=== PATIENT | female | born 1970 | race Caucasian/White ===

== ENCOUNTER 2017-05-19 18:11 | Emergency (ER) | payer OTHER ==
[~2017-05-19] VITALS: Ht 162.6 cm; Wt 74.8 kg
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
[2017-05-19] MEDS ORDERED: ACETAMINOPHEN ES 500 MG TABLET ONE (18:46)
[2017-05-19] MEDS ORDERED: ACETAMINOPHEN 325 MG TABLET PO ONE (19:00)
--- NOTE | 2017-05-19 19:06 | NUR ---
REPORT GIVEN TO SARAH TANG FOR CHARLES
--- NOTE | 2017-05-19 19:15 | NUR ---
Patient in bed, alert and responsive. Nad noted. vss. Comfort meaures rendered. Proper body alignment maintained.
--- NOTE | 2017-05-19 21:08 | NUR ---
Patient discharged to home in stable condition. Written and verbal after care instructions given. Patient verbalizes understanding of instruction. Patient is ambulatory with steady gait, no further complaints.
[2017-05-19 21:09] VITALS: BP 128/74
== END 2017-05-19 21:43 | disposition home or self-care (01) ==
LOC: ER 18:12
DX: S43.102A Unspecified dislocation of left acromioclavicular joint, initial encounter (principal); R51 Headache; J45.909 Unspecified asthma, uncomplicated; F17.210 Nicotine dependence, cigarettes, uncomplicated; F11.10 Opioid abuse, uncomplicated; Z59.0 Homelessness; Z86.14 Personal history of Methicillin resistant Staphylococcus aureus infection; V29.49XA Motorcycle driver injured in collision with other motor vehicles in traffic accident, initial encounter; Y93.55 Activity, bike riding; Y92.89 Other specified places as the place of occurrence of the external cause; Y99.8 Other external cause status
CPT/HCPCS: 29105; 70450; 72125; 73030; 73590; 99284; A4606; Z7610

== ENCOUNTER 2021-02-20 01:44 | Inpatient (IN) | payer OTHER ==
[~2021-02-20] VITALS: Ht 162.6 cm; Wt 86.2 kg
--- NOTE | 2021-02-20 02:00 | NUR ---
PT ARRIVED TO ER WITH RT KNEE SWELLING AND PAIN FOR 5DAYS. PT ALERT AND ORIENTED X4 WITH NON LABORED BREATHING.
--- NOTE | 2021-02-20 02:04 | NUR ---
COVID SWAB TAKEN AND SENT TO LAB.
--- NOTE | 2021-02-20 02:05 | NUR ---
BLOOD WORK AND CULTURES TAKEN AND SENT TO LAB.
[2021-02-20 03:10] LABS: BASOPHILS % (AUTO) 0.1 % (0.0-2.0); EOSINOPHILS % (AUTO) 0.4 % (0.0-6.0); HEMATOCRIT 38 % (33-45); HEMOGLOBIN 12.5 g/dL (11.5-14.8); LYMPHOCYTES # (AUTO) 2.2 K/uL (0.8-4.8); LYMPHOCYTES % (AUTO) 26.7 % (20.0-44.0); MEAN CORPUSCULAR HGB CONC 33 g/dl (31.0-36.0); MEAN CORPUSCULAR VOLUME 91 fL (82-100); MONOCYTES # (AUTO) 0.6 K/uL (0.1-1.30); MONOCYTES % (AUTO) 6.7 % (2.0-12.0); NEUTROPHILS # (AUTO) 5.5 K/uL (1.8-8.9); NEUTROPHILS % (AUTO) 66.1 % (43.0-81.0); PLATELET COUNT (AUTO) 313 K/uL (150-450); RED BLOOD CELL COUNT(AUTO) 4.11 MIL/uL (4.0-5.2); WHITE BLOOD COUNT (AUTO) 8.4 K/uL (4.3-11.0)
[2021-02-20 03:23] LABS: CALCIUM, SERUM 8.5 mg/dL (8.5-10.1); CREATININE 0.9 mg/dL (0.6-1.3); POTASSIUM 3.8 mmol/L (3.5-5.1)
[2021-02-20] MEDS ORDERED: VANCOMYCIN 1 GM in IV D5W 250 ML IV ONE (03:30)
[2021-02-20 03:37] LABS: ALBUMIN 3.8 g/dL (3.4-5.0); BILIRUBIN,DIRECT 0.1 mg/dL (0.0-0.2); BILIRUBIN,TOTAL 0.4 mg/dL (0.2-1.0); TOTAL PROTEIN, SERUM 8.1 g/dL (6.4-8.2)
[2021-02-20] MEDS ORDERED: VANCOMYCIN 1 GM VIAL ONE (03:40)
--- NOTE | 2021-02-20 04:49 | NUR ---
DR. MIRANDA PAGED PER CARLEEN WEINSTEIN ORDER.
--- NOTE | 2021-02-20 05:02 | NUR ---
PT RESTING COMFORTABLY NO COMPLAINTS AT THIS TIME WILL CONTINUE TO MONITOR
--- NOTE | 2021-02-20 06:17 | NUR ---
REPORT CALLED TO M/S SARAH JUAREZ.
--- NOTE | 2021-02-20 06:39 | NUR ---
TRANSFERRED PT TO ROOM 321
--- NOTE | 2021-02-20 06:40 | NUR ---
MS RN NOTE PATIENT TRANSFERRED FROM ER. PATIENT IS AMBULATORY. IV ON THE RT AC 20 G. RIGHT LEG NOTICEABLY RED AND SWOLLEN. SKIN ISSUES DOCUMENTED. PATIENT IS TOLERATING ROOM AIR, BREATHING EVEN AND UNLABORED. ORIENTED PATIENT TO ROOM, RN, MACHINIST SUPERVISOR OUTSIDE. SAFETY MEASURES IN PLACE: BED IN LOCKED AND IN LOWEST POSITION, CALL LIGHT WITHIN REACH, SIDE RAILS UP. WILL ENDORSE TO DAYSHIFT NURSE FOR CHARLES.
[2021-02-20 06:45] VITALS: BP 120/69
[2021-02-20] MEDS ORDERED: ONDANSETRON HCL/PF 4 MG/2 ML VIAL IVP PRN (07:00)
[2021-02-20] MEDS ORDERED: HYDROCODONE/APAP 5/325MG TABLET PO PRN (07:00)
[2021-02-20] MEDS ORDERED: ACETAMINOPHEN 325 MG TABLET PO PRN (07:00)
--- NOTE | 2021-02-20 07:21 | NUR ---
MS RN OPENING NOTES RECEIVED PATIENT RESTING IN BED. A/O X 4. ABLE TO MAKE NEEDS KNOWN, DENIES PAIN OR ANY DISCOMFORTS AT THIS TIME. ON ROOM AIR, BREATHING EVEN AND UNLABORED. IV ACCESS ON LAC G#20 INTACT AND PATENT. SAFETY MEASURES IN PLACE: BED LOCKED AND IN LOWEST POSITION, CALL LIGHT WITHIN REACH, SIDE RAILS UP X2. WILL MONITOR PT ACCORDINGLY.
[2021-02-20 08:00] VITALS: BP 104/50
[2021-02-20] MEDS: PANTOPRAZOLE 40 MG TABLET.DR PO SCH (09:24)
--- NOTE | 2021-02-20 09:28 | NUR ---
WOUND CARE CONSULT: PT PRESENTS WITH REDNESS AND EDEMA TO RT LOWER LEG WITH DRY SCAB AND RAISED AREA TO RT KNEE, PRESENT ON ADMISSION. DEFER TO PMD FOR POSSIBLE SURGICAL CONSULT. WILL SEE PRN.
[2021-02-20] MEDS: PIPERACILLIN /TAZOBACTAM 3.375 G in IV D5W 50 ML IV SCH ×2 (11:37→18:34)
[2021-02-20] MEDS: IV 1/2NS 1000 ML 1,000 ML IV PRN (11:37)
[2021-02-20] MEDS ORDERED: PIPERACILLIN /TAZOBACTAM 3.375 G in IV D5W 50 ML IV SCH (12:00)
[2021-02-20 16:00] VITALS: BP 109/62
[2021-02-20] MEDS: VANCOMYCIN 1 GM in IV D5W 250ml IV SCH (16:16)
--- NOTE | 2021-02-20 18:34 | NUR ---
MS RN CLOSING NOTES PATIENT IN BED WATCHING TV AT THIS TIME. A/O X 4. ABLE TO MAKE NEEDS KNOWN. ON ROOM AIR, BREATHING EVEN AND UNLABORED. IV ACCESS ON LAC G#20 INTACT AND PATENT, IVF OF NS @ 80 ML/HR INFUSING WELL, NO S/S OF INFILTRATION AT SITE NOTED. ALL NEEDS AND CARE ATTENDED WELL. SAFETY MEASURES IN PLACE: BED LOCKED AND IN LOWEST POSITION, CALL LIGHT WITHIN REACH, SIDE RAILS UP X2. WILL ENDORSE CHARLES TO SHELL MOLDING ROLLER BLAST OPERATOR NURSE.
--- NOTE | 2021-02-20 19:15 | NUR ---
RN OPENING NOTE PATIENT IS IN BED, EYES CLOSED, EASILY AWAKENED. PATIENT IS A/O X 3 ABLE TO MAKE NEEDS KNOWN. PATIENT'S RT LOWER LEG CELLULITIS, REDNESS MARKED WITH MARKER. PATIENT IS ABLE TO AMBULATE STEADILY. R AC 20 G PATENT AND INTACT, IV FLUID RUNNING AT 80 ML/HR. SAFETY MEASURES IN PLACE: BED LOCKED AND IN LOWEST POSITION, CALL LIGHT WITHIN REACH, SIDE RAILS UP. WILL ENDORSE TO DAY SHIFT NURSE FOR CHARLES.
[2021-02-20 20:00] VITALS: BP 110/63
[2021-02-21] MEDS: PIPERACILLIN /TAZOBACTAM 3.375 G in IV D5W 50 ML IV SCH ×5 (00:08→23:41)
[2021-02-21] MEDS: IV 1/2NS 1000 ML 1,000 ML IV PRN (04:31)
[2021-02-21] MEDS: VANCOMYCIN 1 GM in IV D5W 250ml IV SCH ×2 (04:31→16:41)
[2021-02-21 06:22] LABS: EOSINOPHILS % (AUTO) 0.4 % (0.0-6.0); HEMATOCRIT 37 % (33-45); HEMOGLOBIN 12.5 g/dL (11.5-14.8); LYMPHOCYTES # (AUTO) 2.1 K/uL (0.8-4.8); LYMPHOCYTES % (AUTO) 29.3 % (20.0-44.0); MEAN CORPUSCULAR HGB CONC 34 g/dl (31.0-36.0); MEAN CORPUSCULAR VOLUME 90 fL (82-100); MONOCYTES # (AUTO) 0.4 K/uL (0.1-1.30); MONOCYTES % (AUTO) 5.3 % (2.0-12.0); NEUTROPHILS # (AUTO) 4.6 K/uL (1.8-8.9); PLATELET COUNT (AUTO) 300 K/uL (150-450); RED BLOOD CELL COUNT(AUTO) 4.11 MIL/uL (4.0-5.2)
--- NOTE | 2021-02-21 06:44 | NUR ---
RN CLOSING NOTE PATIENT IS A/O X 4, ABLE TO MAKE NEEDS KNOWN. PATIENT HAS IV FLUID 1/2 NS AT 80 ML/HR, RAC IV ACCESS PATENT AND INTACT. PATIENT DOES NOT COMPLAIN OF PAIN AT THIS TIME. NO SIGNIFICANT CHANGES IN CONDITION. SAFETY MEASURES IN PLACE: BED LOCKED AND IN LOWEST POSITION, CALL LIGHT WITHIN REACH, SIDE RAILS UP. ALL NEEDS MET AND ATTENDED, ALL ORDERS CARRIED OUT. WILL ENDORSE TO DAY SHIFT NURSE FOR CHARLES.
[2021-02-21 06:48] LABS: CALCIUM, SERUM 8.4 mg/dL (8.5-10.1); CREATININE 0.9 mg/dL (0.6-1.3); MAGNESIUM 2.1 mg/dL (1.8-2.4); POTASSIUM 3.9 mmol/L (3.5-5.1)
--- NOTE | 2021-02-21 07:30 | NUR ---
MS RN OPENING NOTES RECEIVED PATIENT IN BED ASLEEP, EASILY AWAKENS. A/O X 4. ABLE TO MAKE NEEDS KNOWN, DENIES PAIN OR ANY DISCOMFORTS AT THIS TIME. ON ROOM AIR, BREATHING EVEN AND UNLABORED. IV ACCESS ON LAC G#20 INTACT AND PATENT, IVF OF 1/2 NS @ 80ML/HR INFUSING WELL, NO S/S OF INFILTRATIONS AT SITE NOTED. SAFETY MEASURES IN PLACE: BED LOCKED AND IN LOWEST POSITION, CALL LIGHT WITHIN REACH AND SIDE RAILS UP X2. WILL CONTINUE TO MONITOR PT ACCORDINGLY.
[2021-02-21 08:00] VITALS: BP 116/68
[2021-02-21] MEDS: PANTOPRAZOLE 40 MG TABLET.DR PO SCH (08:16)
[2021-02-21] MEDS: NICOTINE PATCH (7MG) 7 MG PATCH.TD24 TD SCH (12:42)
[2021-02-21 16:00] VITALS: BP 106/64
--- NOTE | 2021-02-21 16:36 | NUR ---
SS Consult: SS Consult requested for Hx. of Heroin use. The pt. is a 50-year old female who is in MED SURG receiving Tx for cellulitis. The pt. appears well-groomed is A&O X4 and makes good eye contact. The pt.s mood & speech are WNL. DIAMOND explored pt.s living situation. Pt. states lives with boyfriend, Rick Chan [phone] at [[phone] [facility] [address];]. DIAMOND explored pt.s mental health Hx. Pt. states she has never been diagnosed with a mental illness. DIAMOND explored pt.s drug & ETOH use. Patient denies any current drug use and alcohol use. Pt. states she is ambulatory. DIAMOND explored pt.s support system. Pt. states her boyfriend, Rick Chan [phone] is her support system. Pt. denies SI/HI and denies hallucinations. DIAMOND explored if pt. needs any referrals, resources and pt. states she does not D/C PLAN:Pt. stated she will return to [facility] with boyfriend, Rick Chan [phone] at [[phone] [facility] [address]]. DIAMOND discussed D/C plan with charge nurse, Arun.
--- NOTE | 2021-02-21 19:30 | NUR ---
MS RN NOTES RECEIVED ON BED A/O X4,BREATHING REGULAR,NOT IN ANY FORM OF DISTRESS,NOTED RIGHT BELOW THE KNEE REDNESS WITH SCAB,NO DISCHARGES NOTED.PAIN TOLERABLE AT THE MOMENT.IVF 1/2 AT 80ML/HR RATE INFUSING WELL ON RIGHT AC SALINE LOCK,VIA IV PUMP,NO S/S OF INFILTRATION NOTED,ABLE TO AMBULATE WITH STEADY GAIT.CONSUMED 100% ON HER DINNER FOOD.CALL LIGHT IN REACH,NEEDS ANTICIPATED.
--- NOTE | 2021-02-21 19:50 | NUR ---
MS RN CLOSING NOTES PATIENT IN BED ASLEEP AT THIS TIME, EASILY AWAKENS. A/O X 4. ABLE TO MAKE NEEDS KNOWN. ON ROOM AIR, BREATHING EVEN AND UNLABORED. IV ACCESS ON LAC G#20 INTACT AND PATENT, IVF OF NS @ 80 ML/HR INFUSING WELL, NO S/S OF INFILTRATION AT SITE NOTED. ALL NEEDS AND CARE ATTENDED WELL. SAFETY MEASURES IN PLACE: BED LOCKED AND IN LOWEST POSITION, CALL LIGHT WITHIN REACH, SIDE RAILS UP X2. WILL ENDORSE CHARLES TO FENCE MANUFACTURE SUPERVISOR NURSE.
[2021-02-21 20:00] VITALS: BP 109/63
[2021-02-21 20:38] VITALS: BP 109/63
[2021-02-22] MEDS: VANCOMYCIN 1 GM in IV D5W 250ml IV SCH (03:52)
[2021-02-22] MEDS: PIPERACILLIN /TAZOBACTAM 3.375 G in IV D5W 50 ML IV SCH (05:49)
[2021-02-22 06:10] LABS: BASOPHILS % (AUTO) 0.1 % (0.0-2.0); EOSINOPHILS % (AUTO) 0.4 % (0.0-6.0); HEMATOCRIT 38 % (33-45); LYMPHOCYTES # (AUTO) 1.9 K/uL (0.8-4.8); LYMPHOCYTES % (AUTO) 29.4 % (20.0-44.0); MEAN CORPUSCULAR HGB CONC 34 g/dl (31.0-36.0); MEAN CORPUSCULAR VOLUME 90 fL (82-100); MONOCYTES # (AUTO) 0.5 K/uL (0.1-1.30); MONOCYTES % (AUTO) 7.2 % (2.0-12.0); NEUTROPHILS % (AUTO) 62.9 % (43.0-81.0); PLATELET COUNT (AUTO) 304 K/uL (150-450); RED BLOOD CELL COUNT(AUTO) 4.28 MIL/uL (4.0-5.2); WHITE BLOOD COUNT (AUTO) 6.3 K/uL (4.3-11.0)
--- NOTE | 2021-02-22 06:17 | NUR ---
MS RN NOTES SLEPT WELL AT NIGHT,NO COMPLAINTS OF PAIN,IVF INFUSING,SITE REMAINS PATENT.ALL DUE IV MED ADMINISTERED.AMBULATE WITH STEADY GAIT.IN NO ACUTE DISTRESS.WILL ENDORSE TO DAY NURSE FOR CHARLES.
[2021-02-22 06:23] LABS: CREATININE 0.8 mg/dL (0.6-1.3); MAGNESIUM 2.2 mg/dL (1.8-2.4); POTASSIUM 4.1 mmol/L (3.5-5.1)
--- NOTE | 2021-02-22 07:37 | NUR ---
MS RN OPENING NOTES RECEIVED PATIENT LYING IN BED, RESTING. EASY TO AROUSE. A/O X4. STABLE ON ROOM AIR - NO SOB NOTED. NO DISTRESS/DISCOMFORT NOTED AT THIS TIME. RIGHT LEG CELLULITIS (REDNESS) NOTED BELOW THE KNEE. IV ACCESS TO RIGHT AC #20 - RUNNING 1/2 NS @ 80ML/HR. SAFETY MEASURES IN PLACE. CALL LIGHT WITHIN REACH. WILL CONTINUE TO MONITOR.
[2021-02-22] MEDS: NICOTINE PATCH (7MG) 7 MG PATCH.TD24 TD SCH (08:16)
[2021-02-22] MEDS: PANTOPRAZOLE 40 MG TABLET.DR PO SCH (08:16)
[2021-02-22 09:47] VITALS: BP 107/65
[2021-02-22] MEDS ORDERED: CLIN150C16 PO (10:52)
[2021-02-22] MEDS ORDERED: ONDA4TAB11 PO (10:55)
[2021-02-22] MEDS ORDERED: CLINDAMYCIN HCL 150 MG CAPSULE PO ONE (11:00)
--- NOTE | 2021-02-22 11:45 | NUR ---
MS WHITING MACHINE OPERATOR NOTE PATIENT DISCHARGED VIA PRIVATE CAR @ 2525. PATIENT STABLE, A/O X4. NO SOB NOTED. NO PAIN NOTED AT THIS TIME. ALL PATIENT EDUCATION AND EXITCARE GONE OVER WITH PATIENT. PATIENT VERBALIZED UNDERSTANDING. PRESCRIPTION ELECTRONICALLY SENT TO PHARMACY. IV ACCESS REMOVED. WRISTBAND REMOVED. DISCHARGE PHOTOS TAKEN. PATIENT ACCOMPANIED TO LOBBY BY AND PARBOILERBRENTON Meza. MD AWARE AND CHARGE NURSE AWARE OF DISCHARGE.
== END 2021-02-22 11:50 | disposition home or self-care (01) | DRG 383 ==
LOC: ER 01:51 → MED 05:52
PROVIDERS: ADMIT Nurse Practitioner Family; ATTEND Nurse Practitioner Family
DX: L03.115 Cellulitis of right lower limb (principal); F11.11 Opioid abuse, in remission; F17.200 Nicotine dependence, unspecified, uncomplicated; Z59.0 Homelessness; Z20.822 Contact with and (suspected) exposure to COVID-19; Z86.14 Personal history of Methicillin resistant Staphylococcus aureus infection; S80.211A Abrasion, right knee, initial encounter; W19.XXXA Unspecified fall, initial encounter; Y92.9 Unspecified place or not applicable
CPT/HCPCS: 36415; 80048-TC; 80076-TC; 80202-TC; 83605-TC; 83735-TC; 85025-TC; 85652-TC; 85730-TC; 86140-TC; 87040-TC; 87081-TC; 93971-TC; C9803; G0378; J2543; J3370; J3490; J7060

== ENCOUNTER 2021-10-02 10:07 | Emergency (ER) | payer OTHER ==
[~2021-10-02] VITALS: Ht 162.6 cm; Wt 98.4 kg
[~2021-10-02 10:07] MED LIST: CLIN150C16 PO; ONDA4TAB11 PO
--- NOTE | 2021-10-02 10:27 | NUR ---
URINE SPECIMEN COLLECTED AND SENT TO LAB.
[2021-10-02 10:29] VITALS: BP 135/79
--- NOTE | 2021-10-02 11:03 | NUR ---
Patient discharged to home in stable condition. Written and verbal after care instructions given. Patient verbalizes understanding of instruction.
== END 2021-10-02 11:04 | disposition home or self-care (01) ==
LOC: ER 10:15
DX: R10.2 Pelvic and perineal pain (principal); F17.200 Nicotine dependence, unspecified, uncomplicated; Z86.14 Personal history of Methicillin resistant Staphylococcus aureus infection; Z87.720 Personal history of (corrected) congenital malformations of eye; Z59.00 Homelessness unspecified; Z79.899 Other long term (current) drug therapy

== ENCOUNTER 2022-10-19 18:33 | Emergency (ER) | payer OTHER ==
[~2022-10-19] VITALS: Ht 162.6 cm; Wt 90.7 kg
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
[2022-10-19] MEDS ORDERED: HYDROMORPHONE 1 MG/1 ML DISP.SYRIN IM ONE (20:00)
[2022-10-19] MEDS ORDERED: ONDANSETRON 4 MG TAB.RAPDIS SL ONE (20:00)
[2022-10-19] MEDS ORDERED: HYDROMORPHONE 1 MG/1 ML DISP.SYRIN ONE (20:02)
[2022-10-19] MEDS ORDERED: HYDR-4209 PO (20:02)
[2022-10-19] MEDS ORDERED: ONDANSETRON 4 MG TAB.RAPDIS ONE (20:02)
--- NOTE | 2022-10-19 20:09 | NUR ---
CALLED [facility] TO PICK HER UP
[2022-10-19 21:11] VITALS: BP 134/83
[2022-10-23] MEDS ORDERED: HYDR-3980 PO (12:40)
== END 2022-10-19 21:13 | disposition home or self-care (01) ==
LOC: ER 18:36
DX: S32.018A Other fracture of first lumbar vertebra, initial encounter for closed fracture (principal); F17.200 Nicotine dependence, unspecified, uncomplicated; Z59.00 Homelessness unspecified; Z79.899 Other long term (current) drug therapy; V00.148A Other scooter (nonmotorized) accident, initial encounter; Y93.89 Activity, other specified; Y92.89 Other specified places as the place of occurrence of the external cause; Y99.8 Other external cause status
CPT/HCPCS: 99283; 96372; 72110; Q0162; J1170

== ENCOUNTER 2022-12-06 19:30 | Emergency (ER) | payer OTHER ==
[~2022-12-06] VITALS: Ht 160 cm; Wt 90.7 kg
[~2022-12-06 19:30] MED LIST changes: +HYDR-3980 PO
--- NOTE | 2022-12-06 19:34 | NUR ---
called for triage not int he waiting room
[2022-12-06 19:48] VITALS: BP 123/70
--- NOTE | 2022-12-06 20:10 | NUR ---
AT BEDSIDE FOR EVAL
[2022-12-06] MEDS ORDERED: SULF1TAB48 PO (20:23)
== END 2022-12-06 20:25 | disposition home or self-care (01) ==
LOC: ER 19:31
DX: A46 Erysipelas (principal); F17.200 Nicotine dependence, unspecified, uncomplicated; Z59.00 Homelessness unspecified; Z79.899 Other long term (current) drug therapy

== ENCOUNTER 2022-12-07 20:06 | Inpatient (IN) | payer OTHER ==
[~2022-12-07] VITALS: Ht 162.6 cm; Wt 90.7 kg
[~2022-12-07 20:06] MED LIST changes: +SULF1TAB48 PO
--- NOTE | 2022-12-07 21:06 | NUR ---
BIBS C/O R leg cellulitis, was here last night for same reason, redness spreading.
[2022-12-07] MEDS ORDERED: VANCOMYCIN HCL 1.25 GM in IV D5W 260 ML IV ONE (21:30)
[2022-12-07] MEDS ORDERED: KETOROLAC TROMETHAMINE INJ 30 MG/ML VIAL IV ONE (21:30)
--- NOTE | 2022-12-07 21:37 | NUR ---
BLOOD DRAWN AND SWAB FOR COVID19 SENT TO LAB
[2022-12-07] MEDS ORDERED: VANCOMYCIN 1 GM /D5W 250 ML PB IV ONE (21:40)
[2022-12-07] MEDS ORDERED: VANCOMYCIN 500 MG VIAL ONE (21:40)
[2022-12-07] MEDS ORDERED: KETOROLAC TROMETHAMINE INJ 30 MG/ML VIAL ONE (21:43)
[2022-12-07 21:58] LABS: BASOPHILS % (AUTO) 0.1 % (0.0-2.0); HEMATOCRIT 40 % (33-45); LYMPHOCYTES # (AUTO) 1.6 K/uL (0.8-4.8); LYMPHOCYTES % (AUTO) 9.4 % (20.0-44.0); MEAN CORPUSCULAR HGB CONC 33 g/dl (31.0-36.0); MEAN CORPUSCULAR VOLUME 89 fL (82-100); MONOCYTES # (AUTO) 0.6 K/uL (0.1-1.30); MONOCYTES % (AUTO) 3.4 % (2.0-12.0); NEUTROPHILS # (AUTO) 14.6 K/uL (1.8-8.9); NEUTROPHILS % (AUTO) 87.1 % (43.0-81.0); PLATELET COUNT (AUTO) 326 K/uL (150-450); RED BLOOD CELL COUNT(AUTO) 4.43 MIL/uL (4.0-5.2); WHITE BLOOD COUNT (AUTO) 16.8 K/uL (4.3-11.0)
[2022-12-07 22:21] LABS: CALCIUM, SERUM 9.3 mg/dL (8.5-10.1); POTASSIUM 3.1 mmol/L (3.5-5.1)
[2022-12-07 22:24] LABS: C-REACTIVE PROTEIN 34.2 mg/dL (0.0-0.9)
--- NOTE | 2022-12-07 23:34 | NUR ---
room 103
--- NOTE | 2022-12-07 23:51 | NUR ---
report given to Willa RN to continue care.
[2022-12-08 00:15] VITALS: BP 113/70
--- NOTE | 2022-12-08 00:25 | NUR ---
TRANSFERRED TO FLOOR IN STABLE CONDITION
--- NOTE | 2022-12-08 00:30 | NUR ---
MS INVESTIGATOR UTILITY BILL COMPLAINTS NOTES - RECEIVED PATIENT FROM ED AT 0015 VIA GURNEY UNDER THE CARE OF CHRISTINE PACHECO NP WITH DX OF RIGHT LEG CELLULITIS. PATIENT IS A/O X4. BREATHING EVEN AND NON-LABORED ON ROOM AIR. VERBALIZED MILD TIGHTNESS-LIKE RIGHT LEG PAIN 2/10. HAS LEFT ANTECUBITAL IV ACCESS #20G AND SALINE LOCKED. NO S/S OF INFILTRATION NOTED. VITAL SIGNS TAKEN AND PHYSICAL ASSESSMENT DONE. RIGHT LEG REDNESS AND SWELLING NOTED. ALL BELONGINGS ACCOUNTED FOR. ORIENTED PATIENT TO UNIT AND STAFF. SAFETY PRECAUTIONS IN PLACE: BED LOCKED AND IN LOW POSITION, SIDE RAILS UP X2, CALL LIGHT WITHIN REACH. WILL CONTINUE PLAN OF CARE.
[2022-12-08] MEDS ORDERED: MAGNESIUM HYDROXIDE 30 ML UDC PO PRN (02:00)
[2022-12-08] MEDS ORDERED: Z GUARD REMEDY 4 OZ OINT TP PRN (02:00)
[2022-12-08] MEDS ORDERED: ONDANSETRON HCL/PF 4 MG/2 ML VIAL IVP PRN (02:00)
[2022-12-08] MEDS ORDERED: MAG HYDROX/AL HYDROX/SIMETH 30 ML UDC PO PRN (02:00)
[2022-12-08] MEDS ORDERED: ZOLPIDEM TARTRATE 5 MG TABLET PO PRN (02:00)
[2022-12-08] MEDS: ENOXAPARIN SODIUM 40 MG/0.4 ML DISP.SYRIN SQ SCH ×2 (02:49→21:28)
[2022-12-08 04:00] VITALS: BP 105/65
[2022-12-08 05:50] LABS: BASOPHILS % (AUTO) 0.1 % (0.0-2.0); EOSINOPHILS % (AUTO) 0.1 % (0.0-6.0); HEMATOCRIT 36 % (33-45); HEMOGLOBIN 11.5 g/dL (11.5-14.8); LYMPHOCYTES # (AUTO) 1.6 K/uL (0.8-4.8); LYMPHOCYTES % (AUTO) 12.2 % (20.0-44.0); MEAN CORPUSCULAR HGB CONC 32 g/dl (31.0-36.0); MEAN CORPUSCULAR VOLUME 90 fL (82-100); MONOCYTES # (AUTO) 0.6 K/uL (0.1-1.30); MONOCYTES % (AUTO) 4.4 % (2.0-12.0); NEUTROPHILS # (AUTO) 10.9 K/uL (1.8-8.9); NEUTROPHILS % (AUTO) 83.2 % (43.0-81.0); PLATELET COUNT (AUTO) 289 K/uL (150-450); RED BLOOD CELL COUNT(AUTO) 3.99 MIL/uL (4.0-5.2); WHITE BLOOD COUNT (AUTO) 13.1 K/uL (4.3-11.0)
[2022-12-08 06:01] LABS: CALCIUM, SERUM 8.8 mg/dL (8.5-10.1); CREATININE 0.9 mg/dL (0.6-1.3); MAGNESIUM 2.2 mg/dL (1.8-2.4); PHOSPHORUS 2.4 mg/dL (2.5-4.9)
--- NOTE | 2022-12-08 07:00 | NUR ---
MS RN CLOSING NOTES - PATIENT SITTING ON BEDSIDE, ABLE TO VERBALIZE NEEDS. NO SOB OR NOTED, SATURATING WELL ON ROOM AIR. NOT IN ACUTE DISTRESS. AFEBRILE. LEFT ANTECUBITAL IV ACCESS INTACT, PATENT AND FLUSHING. ALL DUE MEDS GIVEN AND NEEDS ATTENDED. PATIENT IS AMBULATORY WITH STAND BY ASSIST AND INDEPENDENT WITH ADLS. SAFETY PRECAUTIONS MAINTAINED. WILL ENDORSE TO AM NURSE FOR CHARLES.
--- NOTE | 2022-12-08 07:10 | NUR ---
GRAPHIC COORDINATOR OPENING NOTES Received pt awake in bed AOX4. No complaints of pain or discomfort at this time. Pt is on Ra and tolerating it well. IV access on LAC 20G SL patent and intact. HOB elevated to pts comfort. Siderails up at all times x2. Call light within reach. Will continue to monitor.
[2022-12-08 08:00] VITALS: BP 117/62
[2022-12-08] MEDS ORDERED: POTASSIUM CHLORIDE 20 MEQ TAB.PRT.SR PO ONE (08:00)
[2022-12-08] MEDS: PANTOPRAZOLE 40 MG VIAL IV SCH (08:07)
[2022-12-08] MEDS: NICOTINE PATCH (21MG) 21 MG PATCH.TD24 TD SCH (08:52)
[2022-12-08] MEDS: VANCOMYCIN 1 GM in IV D5W 250ml IV SCH ×2 (09:55→21:27)
[2022-12-08] MEDS: POTASSIUM PHOSPHATE MM 7.5 MMOL in IV NS 0.9% 100 ML IV SCH ×2 (11:04→14:07)
[2022-12-08 16:00] VITALS: BP 111/67
--- NOTE | 2022-12-08 18:00 | NUR ---
SOFTWARE DEVELOPER INTERN NOTES Upon recent assessment the cellulitics has spread to pts right thigh. made aware.
--- NOTE | 2022-12-08 18:42 | NUR ---
QUALITY SYSTEMS ENGINEER CLOSING NOTES All due meds and tx given as ordered. Pt tolerated everything well. All needs attended to. Call light within reach. Will endorse to oncoming nurse.
--- NOTE | 2022-12-08 19:30 | NUR ---
MS RN OPENING NOTES RECEIVED PT SLEEPING IN BED, EASILY AROUSABLE. A/O X4, ABLE TO VERBALIZE NEEDS. NO SOB OR NOTED, SATURATING WELL ON ROOM AIR. NOT IN ACUTE DISTRESS. AFEBRILE. LEFT ANTECUBITAL IV ACCESS INTACT, PATENT AND FLUSHING. SAFETY PRECAUTIONS IN PLACE: BED LOCKED AND IN LOW POSITION, SIDE RAILS UP X2, CALL LIGHT AND TRAY TABLE WITHIN REACH. WILL CONTINUE TO MONITOR AND ASSIST. Addendum: 12/08/22 at 2000 by DUSTY OLVERA RN EDEMA AND REDNESS ON R LEG AND R THIGH NOTED.
[2022-12-08] MEDS: ACETAMINOPHEN 325 MG TABLET PO PRN (19:50)
[2022-12-08 20:00] VITALS: BP 125/71
--- NOTE | 2022-12-08 20:00 | NUR ---
RN NOTE PT TEMP 100.0 F AND C/O OF HEADACHE. GIVEN TYLENOL AND ICE PACKS. WILL REASSESS IN 1 HOUR.
--- NOTE | 2022-12-08 21:07 | NUR ---
RN NOTE TEMP REASSESSED: 99.5 F. WILL CONTINUE COOLING MEASURES FOR NOW AND REASSESS AGAIN. PT ALSO VERBALIZED RELIEF FROM HEADACHE.
[2022-12-09 04:00] VITALS: BP 115/66
--- NOTE | 2022-12-09 06:31 | NUR ---
MS RN CLOSING NOTES PT SLEEPING IN BED, EASILY AROUSABLE. A/O X4, ABLE TO VERBALIZE NEEDS. ON RA WITH NO SOB OR LABORED BREATHING NOTED, 99% O2 SAT. NOT IN ACUTE DISTRESS. AFEBRILE AT THIS TIME. IV ACCESS LAC #20G SL, INTACT, PATENT, FLUSHING WELL. EDEMA AND REDNESS ON R LEG AND R THIGH NOTED. ALL CARE PROVIDED AND MEDS TOLERATED WELL. SAFETY PRECAUTIONS MAINTAINED: BED LOCKED AND IN LOW POSITION, SIDE RAILS UP X2, CALL LIGHT AND TRAY TABLE WITHIN REACH. WILL ENDORSE CHARLES TO DAY SHIFT NURSE.
[2022-12-09 07:01] LABS: BASOPHILS % (AUTO) 0.1 % (0.0-2.0); EOSINOPHILS % (AUTO) 0.1 % (0.0-6.0); HEMATOCRIT 33 % (33-45); HEMOGLOBIN 11.2 g/dL (11.5-14.8); LYMPHOCYTES # (AUTO) 1.5 K/uL (0.8-4.8); LYMPHOCYTES % (AUTO) 16.4 % (20.0-44.0); MEAN CORPUSCULAR HGB CONC 33 g/dl (31.0-36.0); MEAN CORPUSCULAR VOLUME 88 fL (82-100); MONOCYTES # (AUTO) 0.7 K/uL (0.1-1.30); MONOCYTES % (AUTO) 8.2 % (2.0-12.0); NEUTROPHILS # (AUTO) 6.6 K/uL (1.8-8.9); NEUTROPHILS % (AUTO) 75.2 % (43.0-81.0); PLATELET COUNT (AUTO) 339 K/uL (150-450); WHITE BLOOD COUNT (AUTO) 8.8 K/uL (4.3-11.0)
[2022-12-09 07:04] LABS: CALCIUM, SERUM 8.6 mg/dL (8.5-10.1); CREATININE 0.7 mg/dL (0.6-1.3); PHOSPHORUS 3.4 mg/dL (2.5-4.9); POTASSIUM 3.6 mmol/L (3.5-5.1)
--- NOTE | 2022-12-09 07:18 | NUR ---
RN OPENING NOTE: RECEIVED PT IN BED, A/O X4, ABLE TO VERBALIZE NEEDS. NO SOB NOTED, SATURATING WELL ON ROOM AIR. NOT IN ACUTE DISTRESS. AFEBRILE. LEFT ANTECUBITAL IV ACCESS INTACT 20G, PATENT AND FLUSHING. SAFETY PRECAUTIONS IN PLACE: BED LOCKED AND IN LOW POSITION, SIDE RAILS UP X2, CALL LIGHT AND TRAY TABLE WITHIN REACH. WILL CONTINUE TO MONITOR AND ASSIST.
[2022-12-09 08:00] VITALS: BP 113/69
[2022-12-09] MEDS: NICOTINE PATCH (21MG) 21 MG PATCH.TD24 TD SCH (08:27)
[2022-12-09] MEDS: PANTOPRAZOLE 40 MG VIAL IV SCH (08:27)
[2022-12-09] MEDS: PANTOPRAZOLE 40 MG TABLET.DR PO SCH (09:10)
[2022-12-09] MEDS: VANCOMYCIN 1 GM in IV D5W 250ml IV SCH ×2 (09:12→22:23)
--- NOTE | 2022-12-09 09:22 | NUR ---
WOUND CARE CONSULT: PT PRESENTS WITH VERY RED, SWOLLEN RT LOWER LEG, PRESENT ON ADMISSION. DR TERRAZAS CALLED FOR DPM CONSULT. IN AGREEMENT WITH PLAN OF CARE.
--- NOTE | 2022-12-09 13:30 | NUR ---
MS RN NOTE: ASHLEY DNP AT BEDSIDE.
[2022-12-09] MEDS: ACETAMINOPHEN 325 MG TABLET PO PRN (14:58)
[2022-12-09 16:00] VITALS: BP 120/69
--- NOTE | 2022-12-09 18:15 | NUR ---
MS RN CLOSING NOTE: PT IN BED, A/O X4, ABLE TO VERBALIZE NEEDS. ON RA WITH NO SOB. NOT IN ACUTE DISTRESS. AFEBRILE AT THIS TIME. IV ACCESS LAC #20G SL, INTACT, PATENT, FLUSHING WELL. STILL NOTED WITH REDNESS ON R LEG. ALL CARE PROVIDED AND MEDS TOLERATED WELL. SAFETY PRECAUTIONS MAINTAINED: BED LOCKED AND IN LOW POSITION, SIDE RAILS UP X2, CALL LIGHT AND TRAY TABLE WITHIN REACH. .
--- NOTE | 2022-12-09 19:30 | NUR ---
MS RN OPENING NOTES RECEIVED PATIENT AWAKE IN BED. A/O X 4. BF AT BEDSIDE. ABLE TO MAKE NEEDS KNOWN. NO S/S OF PAIN NOTED AT THIS TIME. ON ROOM AIR, BREATHING EVEN AND UNLABORED, NO DISTRESS OR SON NOTED. IV ACCESS LAC #20G, INTACT AND PATENT. PATIENT IS AMBULATORY WITH ASSIST WITH RIGHT LEG REDNESS. SAFETY MEASURES IN PLACE [facility] BED IN LOWEST LOCKED POSITION. SIDE RAILS UP X 2. CALL LIGHT AND TRAY WITHIN EASY REACH. WILL CONTINUE WITH THE PLAN OF CARE.
[2022-12-09 20:00] VITALS: BP 121/69
[2022-12-09] MEDS: MUPIROCIN OINT 2% 22 GM TUBE TP SCH (21:25)
[2022-12-09] MEDS: ENOXAPARIN SODIUM 40 MG/0.4 ML DISP.SYRIN SQ SCH (22:30)
[2022-12-10 04:00] VITALS: BP 119/67
--- NOTE | 2022-12-10 07:00 | NUR ---
RN OPENING NOTES RECEIVED PATIENT AWAKE IN BED. A/O x4, ABLE TO MAKE NEEDS KNOWN. ON ROOM AIR, BREATHING EVEN AND UNLABORED, WITH NO DISTRESS, SOB OR PAIN NOTED. IV ACCESS LAC #20G, INTACT AND PATENT. PATIENT IS AMBULATORY WITH ASSIST WITH RIGHT LEG REDNESS. SAFETY MEASURES IN PLACE, BED IN LOWEST LOCKED POSITION. SIDE RAILS UP X 2. CALL LIGHT AND TABLE WITHIN REACH. WILL CONTINUE TO MONITOR.
[2022-12-10 07:14] LABS: CALCIUM, SERUM 8.8 mg/dL (8.5-10.1); CREATININE 0.7 mg/dL (0.6-1.3); POTASSIUM 3.9 mmol/L (3.5-5.1)
--- NOTE | 2022-12-10 07:32 | NUR ---
MS RN CLOSING NOTES PATIENT IN BED SLEEPING. EASILY AWAKEN BY VERBAL STIMULI. A/O X 4. NO S/S OF PAIN NOTED AT THIS TIME. ON ROOM AIR, BREATHING EVEN AND UNLABORED, NO DISTRESS OR SON NOTED. IV ACCESS LAC #20G, INTACT AND PATENT. PATIENT IS AMBULATORY WITH ASSIST WITH RIGHT LEG REDNESS. WOUND CARE DONE. ALL NEEDS ATTENDED. SAFETY MEASURES MAINTAINED. WILL ENDORSE TO THE NEXT SHIFT.
[2022-12-10] MEDS: NICOTINE PATCH (21MG) 21 MG PATCH.TD24 TD SCH (08:31)
[2022-12-10] MEDS: PANTOPRAZOLE 40 MG TABLET.DR PO SCH (08:31)
[2022-12-10] MEDS: MUPIROCIN OINT 2% 22 GM TUBE TP SCH ×2 (09:36→20:49)
[2022-12-10] MEDS: VANCOMYCIN 1 GM in IV D5W 250ml IV SCH ×2 (10:19→21:16)
[2022-12-10 10:45] VITALS: BP 109/57
[2022-12-10] MEDS ORDERED: IOHEXOL-300 100 ML VIAL IV ONE (13:52)
[2022-12-10] MEDS ORDERED: CT SWABBABLE VALVE TRANS SET 1 EA INFUS.SET MC ONE (13:52)
[2022-12-10] MEDS ORDERED: IV NS 0.9% 250 ML IV ONE (13:52)
--- NOTE | 2022-12-10 14:18 | NUR ---
SW Consult: Patient is a 52 year old female who presented to [facility] with alcohol abuse. Patient brought to the hospital due to cellulites. Patient was alert and oriented x3 (self, situation, place). Patient presented with a flat affect. Patient was vague and guarded with her answers while this sign writer hand was conducting the assessment. Patient reported that her boyfriend at the [facility] living is her primary support system. She reported that she is unemployed and does not work. She stated that her boyfriend takes care of her financially. Patient reported she resides at [address] [place] [address] and she reported that this is a sober living home. steam trap worker assessed for substance abuse and pt denied, she reported she only smokes cigarettes. Patient denied mental health issues. Patient denied suicidal or homicidal ideation. Patient denied visual/auditory hallucinations. SW provided patient substance abuse resources and pt was accepting. DC Plan: Pt will return back to the sober living facility [address] [place] [address]. Substance Abuse resources provided included: [facility] Substance Abuse Self-Helpline ([facility]) ; [facility] [address] [facility]. [place] [id number] ; [place] [phone] [facility] [phone] ; [facility] [address] [facility] [phone] ; [facility] [phone] ; [facility] [address] [facility] [address] ; [facility] [address] [facility] [phone] ; [facility] Substance Abuse Helpline([facility])-[facility] ; [facility] ; [facility] [place]; [facility]; [facility] [place]; [facility] [place]; [place] [facility]; [facility] Copen; [facility]; [facility], [facility]. [place]; Alcoholics Anonymous [facility]; [place] ; Marijuana Anonymous [facility]; Narcotics Anonymous [email or web address].na.org;
[2022-12-10 16:00] VITALS: BP 112/72
--- NOTE | 2022-12-10 19:01 | NUR ---
RN CLOSING NOTES PATIENT AWAKE IN BED. A/O x4, ABLE TO MAKE NEEDS KNOWN. ON ROOM AIR, BREATHING EVEN AND UNLABORED, WITH NO DISTRESS, SOB OR PAIN NOTED. IV ACCESS LAC #20G, INTACT AND PATENT. PATIENT IS AMBULATORY WITH ASSIST WITH RIGHT LEG REDNESS. PATIENT WAS REPOSITIONED EVERY TWO HOURS, SKIN CARE PROVIDED PER MD ORDER. SAFETY MEASURES IN PLACE, BED IN LOWEST LOCKED POSITION. SIDE RAILS UP X 2. CALL LIGHT AND TABLE WITHIN REACH. REPORT GIVEN TO HARDBOARD SUPERVISOR NURSE FOR CONTINUING OF CARE.
--- NOTE | 2022-12-10 19:39 | NUR ---
MS RN OPENING NOTE PATIENT AWAKE IN BED, ALERT/ORIENTED X 4, PT ABLE TO MAKE NEEDS KNOWN. PATIENT STABLE ON RA, NO S/S OF DISTRESS OR SOB NOTED, BREATHING EVEN AND UNLABORED. IV ACCESS ON LAC #20G INTACT AND SALINE LOCKED. SAFETY MEASURES IN PLACE: CALL AND SIDE TABLE WITHIN REACH, SIDE RAILS UP X 2, BED LOCKED IN LOWEST POSITION. WILL CONTINUE TO MONITOR PATIENT
[2022-12-10 20:00] VITALS: BP 127/71
[2022-12-10] MEDS: HYDROCODONE/APAP 5/325MG TABLET PO PRN (20:12)
--- NOTE | 2022-12-10 20:14 | NUR ---
MS RN NOTE PATIENT C/O 5/10 RIGHT LEG PAIN. PRN NORCO 5-325 MG PO Q4H GIVEN ORDERED. VITAL SIGNS WNL. WILL CONTINUE TO MONITOR PATIENT
[2022-12-10] MEDS: ENOXAPARIN SODIUM 40 MG/0.4 ML DISP.SYRIN SQ SCH (21:15)
[2022-12-11 04:00] VITALS: BP 115/70
--- NOTE | 2022-12-11 06:47 | NUR ---
MS RN CLOSING NOTE PATIENT SLEEPING IN BED, ALERT/ORIENTED X 4, PT ABLE TO MAKE NEEDS KNOWN. PATIENT STABLE ON RA, NO S/S OF DISTRESS OR SOB NOTED, BREATHING EVEN AND UNLABORED. IV ACCESS ON LAC #20G INTACT AND SALINE LOCKED. MEDICATIONS GIVEN ORDERED, PT NEEDS MET THROUGHOUT SHIFT, NO SIGNIFICANT CHANGES. RLE STILL WITH REDNESS AND SWELLING, NO DRAINAGE NOTED. SAFETY MEASURES IN PLACE: CALL LIGHT AND BEDSIDE TABLE WITHIN REACH, SIDE RAILS UP X 2, BED LOCKED IN LOWEST POSITION. WILL ENDORSE TO DAYSHIFT RN FOR CONTINUITY OF CARE
--- NOTE | 2022-12-11 07:00 | NUR ---
RN OPENING NOTES PATIENT AWAKE IN BED. A/O x4, ABLE TO MAKE NEEDS KNOWN. ON ROOM AIR, BREATHING EVEN AND UNLABORED, WITH NO DISTRESS, SOB OR PAIN NOTED. IV ACCESS LAC #20G, INTACT AND PATENT. PATIENT IS AMBULATORY WITH ASSIST WITH RIGHT LEG CELLULITIS, SKIN INTACT. SKIN CARE WILL BE PROVIDED PER MD ORDER. SAFETY MEASURES IN PLACE, BED IN LOWEST LOCKED POSITION. SIDE RAILS UP X 2. CALL LIGHT AND TABLE WITHIN REACH. WILL CONTINUE TO MONITOR.
[2022-12-11 07:31] LABS: CREATININE 0.6 mg/dL (0.6-1.3); POTASSIUM 3.9 mmol/L (3.5-5.1)
[2022-12-11 08:00] VITALS: BP 108/54
[2022-12-11] MEDS: PANTOPRAZOLE 40 MG TABLET.DR PO SCH (08:00)
[2022-12-11] MEDS: NICOTINE PATCH (21MG) 21 MG PATCH.TD24 TD SCH (08:00)
[2022-12-11] MEDS: MUPIROCIN OINT 2% 22 GM TUBE TP SCH (08:06)
[2022-12-11] MEDS: VANCOMYCIN 1 GM in IV D5W 250ml IV SCH ×2 (09:48→21:50)
[2022-12-11] MEDS: HYDROCODONE/APAP 5/325MG TABLET PO PRN (09:59)
[2022-12-11] MEDS: CEFTRIAXONE 1 G in IV D5W 50 ML IV SCH (11:00)
[2022-12-11 16:00] VITALS: BP 105/64
--- NOTE | 2022-12-11 18:58 | NUR ---
RN CLOSING NOTES PATIENT AWAKE IN BED. A/O x4, ABLE TO MAKE NEEDS KNOWN. ON ROOM AIR, BREATHING EVEN AND UNLABORED, WITH NO DISTRESS, SOB OR PAIN NOTED. IV ACCESS LAC #20G, INTACT AND PATENT. ALL MEDICATIONS GIVEN. PATIENT IS AMBULATORY WITH ASSIST WITH RIGHT LEG REDNESS. PATIENT WAS REPOSITIONED EVERY TWO HOURS, SKIN CARE PROVIDED PER MD ORDER. SAFETY MEASURES IN PLACE, BED IN LOWEST LOCKED POSITION. SIDE RAILS UP X 2. CALL LIGHT AND TABLE WITHIN REACH. REPORT GIVEN TO CLAIM TAKER NURSE FOR CONTINUING OF CARE.
--- NOTE | 2022-12-11 19:05 | NUR ---
ER MEDICAL TECHNICIAN OPENING NOTES RECEIVED PT RESTING IN BED, AWAKE, A&OX4, ABLE TO MAKE NEEDS KNOWN, BREATHING EVEN AND UNLABORED, ON RA, AFEBRILE, VS STABLE, NO S/S OF ACUTE DISTRESS NOTED AT THIS TIME, WILL CONTINUE TO MONITOR
[2022-12-11 20:00] VITALS: BP 115/67
[2022-12-11] MEDS ORDERED: MUPIROCIN OINT 2% 22 GM TUBE NS SCH (21:00)
[2022-12-11] MEDS: ENOXAPARIN SODIUM 40 MG/0.4 ML DISP.SYRIN SQ SCH (21:52)
[2022-12-12] MEDS: HYDROCODONE/APAP 5/325MG TABLET PO PRN ×3 (00:50→21:30)
[2022-12-12 04:00] VITALS: BP 123/70
--- NOTE | 2022-12-12 06:30 | NUR ---
LINE TECHNICIAN CLOSING NOTES PATIENT AWAKE RESTING IN BED. A/O x4, ABLE TO MAKE NEEDS KNOWN. ON RA, BREATHING EVEN AND UNLABORED, NO S/S OF ACUTE DISTRESS, DECLINES PAIN AT THIS TIME. LAC #20G, INTACT AND PATENT. ALL DUE MEDICATIONS GIVEN PER MD ORDERS, TOLERATED WELL. PATIENT IS AMBULATORY WITH FWW. SKIN CARE RENDERED WELL. SAFETY MEASURES IN PLACE, BED IN LOWEST LOCKED POSITION. SIDE RAILS UP X 2. CALL LIGHT AND TABLE WITHIN REACH. WILL CONTINUE TO MONITOR
[2022-12-12 06:48] LABS: CALCIUM, SERUM 8.9 mg/dL (8.5-10.1); CREATININE 0.7 mg/dL (0.6-1.3); POTASSIUM 4.1 mmol/L (3.5-5.1)
[2022-12-12 08:00] VITALS: BP 100/54
[2022-12-12 08:07] LABS: HEPATITIS Be AB Negative (Negative)
[2022-12-12] MEDS: NICOTINE PATCH (21MG) 21 MG PATCH.TD24 TD SCH (09:06)
[2022-12-12] MEDS: PANTOPRAZOLE 40 MG TABLET.DR PO SCH (09:06)
[2022-12-12] MEDS: VANCOMYCIN 1 GM in IV D5W 250ml IV SCH ×2 (09:06→21:28)
[2022-12-12] MEDS: CEFTRIAXONE 1 G in IV D5W 50 ML IV SCH (11:01)
[2022-12-12] MEDS: ACETAMINOPHEN 325 MG TABLET PO PRN (13:54)
--- NOTE | 2022-12-12 13:54 | NUR ---
RN NOTE PATIENT COMPLAINING OF MILD PAIN, TYLENOL GIVEN.
[2022-12-12 16:00] VITALS: BP 107/60
--- NOTE | 2022-12-12 19:39 | NUR ---
RN CLOSING NOTES PATIENT AWAKE IN BED. A/O x4, ABLE TO MAKE NEEDS KNOWN. ON ROOM AIR, BREATHING EVEN AND UNLABORED, WITH NO DISTRESS, SOB OR PAIN NOTED. IV ACCESS LAC #20G, INTACT AND PATENT. ALL MEDICATIONS GIVEN. PATIENT IS AMBULATORY WITH ASSIST WITH RIGHT LEG REDNESS. PATIENT WAS REPOSITIONED EVERY TWO HOURS, SKIN CARE PROVIDED PER MD ORDER. SAFETY MEASURES IN PLACE, BED IN LOWEST LOCKED POSITION. SIDE RAILS UP X 2. CALL LIGHT AND TABLE WITHIN REACH. REPORT GIVEN TO MACHINE PRESERVATIVE FILLER NURSE FOR CONTINUING OF CARE.
--- NOTE | 2022-12-12 19:54 | NUR ---
RN OPENING NOTE PATIENT AWAKE IN BED W/ FAMILY AT BEDSIDE. A/OX4. NO S/S OF DISTRESS, BREATHING WITHOUT DIFFICULTY ON ROOM AIR. LAC #20 SL INTACT AND PATENT. SAFETY MEASURES IN PLACE; BED LOCKED AND AT LOWEST POSITION, RAILS UP X2, CALL DOWLING WITHIN REACH. WILL CONTINUE TO MONITOR PATIENT.
[2022-12-12 20:00] VITALS: BP 121/67
[2022-12-12] MEDS: ENOXAPARIN SODIUM 40 MG/0.4 ML DISP.SYRIN SQ SCH (21:30)
[2022-12-13 04:51] VITALS: BP 104/65
--- NOTE | 2022-12-13 05:10 | NUR ---
RN NOTE PATIENT WAS ASKED IF TREADLE CUT OFF SAW OPERATOR AND STAFF COULD CLEAN HER, BUT PATIENT WAS ADAMANT ABOUT REFUSING US TO DO SO. PATIENT EDUCATION GIVEN. PATIENT O/W STABLE; WILL CONTINUE TO MONITOR PATIENT.
[2022-12-13] MEDS: HYDROCODONE/APAP 5/325MG TABLET PO PRN ×3 (05:14→21:39)
--- NOTE | 2022-12-13 06:33 | NUR ---
RN CLOSING NOTE PATIENT AWAKE IN BED. NO S/S OF DISTRESS, BREATHING WITHOUT DIFFICULTY ON ROOM AIR. LAC #20 SL INTACT AND PATENT. SAFETY MEASURES IN PLACE: BED LOCKED AND AT LOWEST POSITION, RAILS UP X2, CALL DOWLING WITHIN REACH. WILL ENDORSE TO NEXT SHIFT FOR CHARLES.
--- NOTE | 2022-12-13 07:10 | NUR ---
RN OPENING NOTE PATIENT AWAKE IN BED. NO S/S OF DISTRESS, BREATHING WITHOUT DIFFICULTY ON ROOM AIR. LAC #20 SL INTACT AND PATENT. SAFETY MEASURES IN PLACE: BED LOCKED AND AT LOWEST POSITION, RAILS UP X2, CALL DOWLING WITHIN REACH. WILL CONTINUE TO MONITOR THE PATIENT
[2022-12-13 07:25] LABS: CALCIUM, SERUM 9.1 mg/dL (8.5-10.1); CREATININE 0.8 mg/dL (0.6-1.3)
[2022-12-13 08:00] VITALS: BP 115/62
[2022-12-13] MEDS: NICOTINE PATCH (21MG) 21 MG PATCH.TD24 TD SCH (08:32)
[2022-12-13] MEDS: PANTOPRAZOLE 40 MG TABLET.DR PO SCH (08:33)
[2022-12-13] MEDS: VANCOMYCIN 1 GM in IV D5W 250ml IV SCH ×2 (10:03→21:22)
[2022-12-13] MEDS: CEFTRIAXONE 1 G in IV D5W 50 ML IV SCH (10:55)
[2022-12-13 16:00] VITALS: BP 115/73
--- NOTE | 2022-12-13 19:30 | NUR ---
MS RN NOTES RECEIVED ON BED ON HIGH FOWLERS POSITION,A/O X4,SPEAK BERMUDIAN,SLEEPING,EASILY AROUSABLE TO VERBAL STIMULI,BREATHING EASY NO SOB.SALINE LOCK LEFT AC INTACT AND PATENT.ABLE TO VERBALIZED NEEDS.PAIN TOLERABLE AT THE MOMENT,CALL LIGHT IN REACH,NEEDS ANTICIPATED.
--- NOTE | 2022-12-13 19:43 | NUR ---
RN CLOSING NOTE PATIENT AWAKE IN BED. NO S/S OF DISTRESS, BREATHING WITHOUT DIFFICULTY ON ROOM AIR. LAC #20 SL INTACT AND PATENT. SAFETY MEASURES IN PLACE: BED LOCKED AND AT LOWEST POSITION, RAILS UP X2, CALL DOWLING WITHIN REACH. WILL ENDORSE TO PM SHIFT RN FOR CHARLES.
[2022-12-13 20:00] VITALS: BP 115/62
[2022-12-13] MEDS: ENOXAPARIN SODIUM 40 MG/0.4 ML DISP.SYRIN SQ SCH (21:26)
--- NOTE | 2022-12-13 21:39 | NUR ---
MS RN NOTES C/O RIGHT HIP PAIN 5-6/10 ON PAIN SCALE.NORCO 5/325MG,1 TAB PO GIVEN ORDERED AND PER PATIENT REQUEST.
[2022-12-14 04:13] VITALS: BP 121/60
[2022-12-14] MEDS: HYDROCODONE/APAP 5/325MG TABLET PO PRN ×3 (05:05→16:58)
--- NOTE | 2022-12-14 05:05 | NUR ---
MS1 RN NOTES AWAKE,AMBULATE TO THE RESTROOM.BACK TO BED IN PAIN ON RIGHT HIP.NORCO 5/325MG,1 TAB PO GIVEN ORDERED AND PER PATIENT REQUEST.
[2022-12-14 06:30] LABS: CALCIUM, SERUM 8.8 mg/dL (8.5-10.1); CREATININE 0.7 mg/dL (0.6-1.3); POTASSIUM 4.2 mmol/L (3.5-5.1)
--- NOTE | 2022-12-14 06:32 | NUR ---
MS RN NOTES FAIRLY RESTED AT NIGHT.PAIN MANAGEMENT EFFECTIVE.DUE IV ABX INFUSED,NO ADVERSE REACTION NOTED.CALL LIGHT IN REACH,NEEDS ATTENDED.
--- NOTE | 2022-12-14 07:20 | NUR ---
MED SURGE RN OPEN NOTE: ALERT AND ORIENTED X4. UNLABORED BREATHING AT ROOM AIR SATING 94 % ROOM AIR. AT MOIST ORAL MUCOSA. LEFT AC IVG20 SALINE LOCKED, PATENT. RIGHT LEG IS RED AND WARM TO TOUCH MONITORED FOR CELLULITIS. PALPABLE PEDAL PULSES. DENIES PAIN OR DISCOMFORT AT THIS TIME. HOB ELEVATED, BILATERAL HALF SIDE RAILS UP X2. BED IN LOW POSITIONED, LOCKED, EXIT ALARM ON. CALL LIGHT IN REACH. SAFETY PRECAUTIONS MAINTAINED.
[2022-12-14 08:00] VITALS: BP 111/64
[2022-12-14] MEDS: PANTOPRAZOLE 40 MG TABLET.DR PO SCH (08:19)
[2022-12-14] MEDS: NICOTINE PATCH (21MG) 21 MG PATCH.TD24 TD SCH (08:20)
[2022-12-14] MEDS: VANCOMYCIN 1 GM in IV D5W 250ml IV SCH ×2 (10:00→21:29)
[2022-12-14] MEDS: CEFTRIAXONE 1 G in IV D5W 50 ML IV SCH (12:10)
[2022-12-14 16:00] VITALS: BP 107/71
--- NOTE | 2022-12-14 18:41 | NUR ---
RN CLOSING NOTE PATIENT AWAKE IN BED. NO S/S OF DISTRESS, BREATHING WITHOUT DIFFICULTY ON ROOM AIR. LAC #20 SL INTACT AND PATENT. SAFETY MEASURES IN PLACE: BED LOCKED AND AT LOWEST POSITION, RAILS UP X2, CALL DOWLING WITHIN REACH. WILL ENDORSE TO FACILITY SERVICE ASSOCIATE RN FOR CHARLES.
--- NOTE | 2022-12-14 19:30 | NUR ---
MS RN OPENING NOTES RECEIVED PATIENT AWAKE IN BED. A/O x4, ABLE TO MAKE NEEDS KNOWN. ON ROOM AIR, BREATHING EVEN AND UNLABORED, WITH NO DISTRESS, SOB OR PAIN NOTED. IV ACCESS LFA #20G, INTACT AND PATENT. PATIENT IS AMBULATORY WITH ASSIST WITH RIGHT LEG CELLULITIS, SKIN INTACT. SKIN CARE WILL BE PROVIDED PER MD ORDER. SAFETY MEASURES IN PLACE, BED IN LOWEST LOCKED POSITION. SIDE RAILS UP X 2. CALL LIGHT AND TABLE WITHIN REACH. WILL CONTINUE TO MONITOR THROUGHOUT THE SHIFT.
[2022-12-14 20:00] VITALS: BP 129/74
[2022-12-14] MEDS: ENOXAPARIN SODIUM 40 MG/0.4 ML DISP.SYRIN SQ SCH (21:35)
[2022-12-15] MEDS: HYDROCODONE/APAP 5/325MG TABLET PO PRN ×3 (00:20→14:38)
[2022-12-15 04:00] VITALS: BP 107/66
--- NOTE | 2022-12-15 06:31 | NUR ---
MS RN CLOSING NOTES PATIENT REMAINS IN BED ASLEEP. A/O x4, ABLE TO MAKE NEEDS KNOWN. ON ROOM AIR, BREATHING EVEN AND UNLABORED, WITH NO DISTRESS, SOB OR PAIN NOTED. IV ACCESS LFA #20G, INTACT AND PATENT. PATIENT IS AMBULATORY WITH ASSIST WITH RIGHT LEG CELLULITIS, SKIN INTACT. SKIN CARE WILL BE PROVIDED PER MD ORDER. ALL DUE MEDS GIVEN, KEPT DRY AND CLEAN, SAFETY MEASURES IN PLACE, BED IN LOWEST LOCKED POSITION. SIDE RAILS UP X 2. CALL LIGHT AND TABLE WITHIN REACH. WILL ENDORSE TO AM SHIFT NURSE FOR CONTINUITY OF CARE.
--- NOTE | 2022-12-15 07:00 | NUR ---
RN OPENING NOTES PATIENT AWAKE IN BED. A/O x4, ABLE TO MAKE NEEDS KNOWN. ON ROOM AIR, BREATHING EVEN AND UNLABORED, WITH NO DISTRESS, SOB OR PAIN NOTED. IV ACCESS LFA #20G, INTACT AND PATENT. PATIENT IS AMBULATORY WITH ASSIST WITH RIGHT LEG CELLULITIS, SKIN INTACT. SKIN CARE WILL BE PROVIDED PER MD ORDER. SAFETY MEASURES IN PLACE, BED IN LOWEST LOCKED POSITION. SIDE RAILS UP X 2. CALL LIGHT AND TABLE WITHIN REACH. WILL CONTINUE TO MONITOR.
[2022-12-15 08:00] VITALS: BP 108/61
[2022-12-15] MEDS: NICOTINE PATCH (21MG) 21 MG PATCH.TD24 TD SCH (08:08)
[2022-12-15] MEDS: PANTOPRAZOLE 40 MG TABLET.DR PO SCH (08:08)
[2022-12-15 08:38] LABS: CALCIUM, SERUM 9.2 mg/dL (8.5-10.1); CREATININE 0.8 mg/dL (0.6-1.3); POTASSIUM 4.1 mmol/L (3.5-5.1)
[2022-12-15] MEDS: VANCOMYCIN 1 GM in IV D5W 250ml IV SCH (09:53)
[2022-12-15] MEDS: CEFTRIAXONE 1 G in IV D5W 50 ML IV SCH (11:03)
[2022-12-15] MEDS ORDERED: HYDR-4279 PO (11:35)
[2022-12-15] MEDS ORDERED: AMOX-430 PO (11:35)
[2022-12-15] MEDS ORDERED: ZOLP10TA2 PO (11:35)
[2022-12-15] MEDS ORDERED: SULF1TAB48 PO (11:35)
[2022-12-15 16:00] VITALS: BP 122/76
--- NOTE | 2022-12-15 16:11 | NUR ---
RN NOTE PATIENT WAS DISCHARGED TO [facility] WHOM WILL TAKE PATIENT TO [facility] VIA PRIVATE CAR. PATIENT LEFT VIA STABLED CONDITION, ALERT AND ORIENTED X4, ON ROOM AIR, WITH O2 SAT AT 99% NO SIGNS OR SYMPTOMS OF PAIN, DISTRESS OR DISCOMFORT NOTED. IV ACCESS WAS REMOVED, DRESSING INTACT, NO BLEEDING NOTED. ALL DISCHARGE AND BELONGINGS PAPERS WERE SIGNED. PATIENT LEFT VIA WHEELCHAIR WITH SUSU.
== END 2022-12-15 16:08 | DRG 383 ==
LOC: ER 20:06 → MEDSG1 23:34
PROVIDERS: ADMIT Nurse Practitioner Acute Care; ATTEND Nurse Practitioner Acute Care
DX: L03.115 Cellulitis of right lower limb (principal); E87.1 Hypo-osmolality and hyponatremia; E87.6 Hypokalemia; Z20.822 Contact with and (suspected) exposure to COVID-19; Z86.14 Personal history of Methicillin resistant Staphylococcus aureus infection; Z91.81 History of falling; F17.200 Nicotine dependence, unspecified, uncomplicated; Z59.00 Homelessness unspecified; A46 Erysipelas; R79.89 Other specified abnormal findings of blood chemistry; M21.612 Bunion of left foot; M21.611 Bunion of right foot; J45.909 Unspecified asthma, uncomplicated; X58.XXXA Exposure to other specified factors, initial encounter; Y92.9 Unspecified place or not applicable; F11.10 Opioid abuse, uncomplicated; S90.812A Abrasion, left foot, initial encounter
CPT/HCPCS: 36415; 73701-TC; 80048-TC; 80202-TC; 83735-TC; 84100-TC; 85025-TC; 85652-TC; 86140-TC; 86704; 86705; 86706; 86707; 86803; 87040-TC; 87081-TC; 87340; 87350; 87806; 93971-TC; 97110-TC; 97112-TC; 97116-TC; 97530-TC; A4223; C9113; C9803; G0378; J0696; J1650; J1885; J3370; J3490; J7030; J7040; J7050; J7060; Q9967

== ENCOUNTER 2022-12-25 01:38 | Inpatient (IN) | payer OTHER ==
[~2022-12-25] VITALS: Ht 162.6 cm; Wt 88.9 kg
[~2022-12-25 01:38] MED LIST changes: +AMOX-430 PO; -CLIN150C16 PO; +HYDR-4279 PO; -ONDA4TAB11 PO; +ZOLP10TA2 PO
--- NOTE | 2022-12-25 02:15 | NUR ---
CAME FROM HOME WITH CC OF CELLULITIS ON RIGHT LOWER LEG. PT WAS ADMITTED AND DISCHARGED LAST DECEMBER 15 D/T CELLULITIS ON RT LEG. WAS ON ANTBX TTT AND JUST FINISHED THE LAST DOSE. PT IS STILL BOTHERED WITH THE REDNESS AND SWELLING. PLACED COMFORTABLY IN BED. VITALS CHECKED.
[2022-12-25] MEDS ORDERED: VANCOMYCIN 1 GM /D5W 250 ML PB IV ONE ×2 (02:20→05:59)
[2022-12-25] MEDS ORDERED: VANCOMYCIN 1 GM in IV D5W 250 ML IV ONE (02:30)
--- NOTE | 2022-12-25 02:37 | NUR ---
IV TO RAC #20G S/L BLOOD COLLECTED AND SENT TO LAB
[2022-12-25] MEDS ORDERED: ONDANSETRON HCL/PF 4 MG/2 ML VIAL ONE (02:40)
[2022-12-25 03:00] LABS: BASOPHILS % (AUTO) 0.1 % (0.0-2.0); EOSINOPHILS % (AUTO) 0.1 % (0.0-6.0); HEMATOCRIT 33 % (33-45); HEMOGLOBIN 11.3 g/dL (11.5-14.8); LYMPHOCYTES # (AUTO) 2.3 K/uL (0.8-4.8); LYMPHOCYTES % (AUTO) 29.6 % (20.0-44.0); MEAN CORPUSCULAR HGB CONC 34 g/dl (31.0-36.0); MEAN CORPUSCULAR VOLUME 87 fL (82-100); MONOCYTES # (AUTO) 0.6 K/uL (0.1-1.30); MONOCYTES % (AUTO) 7.4 % (2.0-12.0); NEUTROPHILS # (AUTO) 4.9 K/uL (1.8-8.9); NEUTROPHILS % (AUTO) 62.8 % (43.0-81.0); PLATELET COUNT (AUTO) 575 K/uL (150-450); RED BLOOD CELL COUNT(AUTO) 3.83 MIL/uL (4.0-5.2); WHITE BLOOD COUNT (AUTO) 7.8 K/uL (4.3-11.0)
[2022-12-25] MEDS ORDERED: ONDANSETRON HCL/PF 4 MG/2 ML VIAL IV ONE (03:00)
[2022-12-25 03:17] LABS: ALBUMIN 3.3 g/dL (3.4-5.0); BILIRUBIN,DIRECT 0.1 mg/dL (0.0-0.2); BILIRUBIN,TOTAL 0.2 mg/dL (0.2-1.0); CALCIUM, SERUM 9.3 mg/dL (8.5-10.1); CREATININE 1.2 mg/dL (0.6-1.3); POTASSIUM 4.4 mmol/L (3.5-5.1)
[2022-12-25 04:24] LABS: TOTAL PROTEIN, SERUM 9.4 g/dL (6.4-8.2)
[2022-12-25] MEDS ORDERED: ONDANSETRON HCL/PF 4 MG/2 ML VIAL IVP PRN (04:30)
--- NOTE | 2022-12-25 04:38 | NUR ---
report given to the RN on third floor
[2022-12-25] MEDS ORDERED: VANCOMYCIN 1 GM in IV D5W 250ml IV ONE (05:00)
[2022-12-25] MEDS: ENOXAPARIN SODIUM 40 MG/0.4 ML DISP.SYRIN SQ SCH (06:01)
--- NOTE | 2022-12-25 06:10 | NUR ---
MS RN ADMITTING NOTE PATIENT WAS TRANSFERRED FROM ER TO [facility] AT 0550H; PATIENT IS A/O X 4, ABLE TO MAKE NEEDS KNOWN; STABLE ON ROOM AIR, BREATHING EVENLY AND NO S/S OF DISTRESS NOTED; WITH IV ACCESS AT RAC G#20 SALINE LOCK; ORIENTED TO STAFF AND ROOM; SKIN ASSESSMENT WAS DONE, PHOTOGRAPHED AND INSERTED INTO CHART; VITAL SIGNS TAKEN AND RECORDED; ENCOURAGED VERBALIZATION OF NEEDS; SAFETY MEASURES IMPLEMENTED, BED LOCKED IN LOWEST POSITION, SIDE RAILS UP X 2, CALL LIGHT AND TABLE WITHIN REACH; WILL CONTINUE TO MONITOR THROUGHOUT SHIFT
--- NOTE | 2022-12-25 06:30 | NUR ---
MS RN NOTE PATIENT CAME IN THE UNIT AT 0552H, HENCE, LATE ADMINISTRATION OF VANCOMYCIN 1G AND LOVENOX.
--- NOTE | 2022-12-25 06:52 | NUR ---
MS RN CLOSING NOTE PATIENT IS A/O X 4, ABLE TO MAKE NEEDS KNOWN; STABLE ON ROOM AIR, BREATHING EVENLY AND NO S/S OF DISTRESS NOTED; WITH IV ACCESS AT RAC G#20 INTACT AND PATENT, RUNNING WITH VANCOMYCIN 1G AT 250 ML/HR; ADMINISTERED MEDICATIONS PRESCRIBED; PATIENT'S NEEDS ATTENDED; SAFETY MEASURES IMPLEMENTED, BED LOCKED IN LOWEST POSITION, SIDE RAILS UP X 2, CALL LIGHT AND TABLE WITHIN REACH; WILL ENDORSE TO AM NURSE FOR CHARLES.
--- NOTE | 2022-12-25 07:21 | NUR ---
MS RN OPENING NOTES RECEIVED PATIENT LYING IN BED, SLEEPING, AROUSABLE TO VERBAL STIMULI, PATIENT IS A/OX4, ABLE TO MAKE HER NEEDS KNOWN, DENIES ANY SOB/, SHE IS ON RA, BREATHING IS EVEN AND UNLABORED, DENIES PAIN AT THIS TIME, IV ACCESS ON RAC #20G AND ON SL. PATENT, INTACT AND FLUSHING WELL, FALL AND SAFETY MEASURES IN PLACE, BED ALARM ON, BED IN LOW AND LOCK POSITION, CALL LIGHT AND TABLE WITHIN EASY REACH, SIDE RAILS UP X2, WILL CONTINUE TO MONITOR PATIENT.
--- NOTE | 2022-12-25 07:49 | NUR ---
WOUND CARE CONSULT: PT PRESENTS WITH VERY RED, SWOLLEN RT LOWER LEG, PRESENT ON ADMISSION. DR TERRAZAS CALLED FOR DPM CONSULT. IN AGREEMENT WITH PLAN OF CARE.
[2022-12-25 08:00] VITALS: BP 112/72
[2022-12-25] MEDS: NICOTINE PATCH (21MG) 21 MG PATCH.TD24 TD SCH (09:12)
--- NOTE | 2022-12-25 10:17 | NUR ---
SW Consult: SW consult requested for patient placement. Pt brought to the hospital due to cellulitis. Patient was alert and oriented x3 (self,place,situation). Pt stated she was brought to the hospital due to leg pain and developing cellulitis. Pt reported that she is currently unemployed. Pt stated she would want to return back to her [facility] called [facility] located at [address] [place] [address]; ([phone]). Pt stated she has been residing there for about three years. She lives with her significant other Rashad ([phone]). SW assessed for substance abuse. She stated that she has been sober and clean for the past year and a half. She reported that she only smokes cigarettes at this time. Pt reported she was using drugs six years ago and was using heroin. Pt denied suicidal or homicidal ideation. Pt denied visual/auditory hallucination. Pt denied any mental illness. Pt stated that her mother, boyfriend, and sister are her support system. SW offered her substance resources and she was accepting. DC PLAN: Pt stated she would want to return back to her [facility] called [facility] located at [address] [place] [address]; ([phone]). SW spoke with Curtis anatomic pathology manager ([phone]) who stated that pt is welcomed back when she is stable. SW notified ROWENA Moran. ). Patient reported he is unsure why he was brought to the hospital and has possible infection. Patient reported that he has been homeless since the age of 18. Patient reported that he has been living on the streets near [place]. Patient reported he has no support. Patient expressed that he has history of mental illness but is unsure of his diagnosis. 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 SW assessed for suicidal or homicidal, pt denied. SW assessed any hallucinations visual/auditory, pt denied. SW assessed for substance abuse and pt expressed that he has been drinking since the age of 20, he has been drinking a few times a week and smokes cigarettes. Pt denied any use of drugs. SW offered pt resources and pt was accepting of shelters and substance abuse referrals. Substance Abuse resources provided included: [facility] Substance Abuse Self-Helpline ([facility]) ; [facility] [address] [facility]. [place]. [place] [address] ; [facility] [address] [facility] [address] ; [facility] [address] [place]. [place] [phone] ; [facility] [address] ; [facility] [address] [facility] [phone] ; [facility] [address] [facility] [phone] ; [facility] Substance Abuse Helpline([facility] ; [facility] ; [facility]; [facility]; [facility] [place]; [facility] [place]; [facility]; [facility]; [facility] [place]; [facility] [place]; Alcoholics Anonymous -[facility]; [facility] ; Marijuana Anonymous [facility]; Narcotics Anonymous www.na.org; Addendum: 12/25/22 at 1023 by DIAMOND ESPANA Disregard bottom note and new note will be submitted.
--- NOTE | 2022-12-25 10:23 | NUR ---
SW Consult (correct one): SW consult requested for patient placement. Pt brought to the hospital due to cellulitis. Patient was alert and oriented x3 (self,place,situation). Pt stated she was brought to the hospital due to leg pain and developing cellulitis. Pt reported that she is currently unemployed. Pt stated she would want to return back to her [facility] called [facility] located at [address] [place] [address]; ([phone]). Pt stated she has been residing there for about three years. She lives with her significant other Rashad ([phone]). SW assessed for substance abuse. She stated that she has been sober and clean for the past year and a half. She reported that she only smokes cigarettes at this time. Pt reported she was using drugs six years ago and was using heroin. Pt denied suicidal or homicidal ideation. Pt denied visual/auditory hallucination. Pt denied any mental illness. Pt stated that her mother, boyfriend, and sister are her support system. SW offered her substance resources and she was accepting. DC PLAN: Pt stated she would want to return back to her [facility] called [facility] located at [address] [place] [address]; ([phone]). DIAMOND spoke with Curtis breeding manager ([phone]) who stated that pt is welcomed back when she is stable. DIAMOND notified ROWENA Moran. Substance Abuse resources provided included: [facility] Substance Abuse Self-Helpline ([facility]) ; [facility] [address] [facility]. [place] [address] ; [facility] [address] [facility] [address] ; [facility] [address] [facility] [address] ; [facility] [address] [facility] [address] ; [facility] [address] [facility] [address] ; [facility] [address] [facility] [phone] ; [facility] Substance Abuse Helpline([facility] ; [facility] ; [facility] [place]; [facility]; [facility] [place]; [facility] [place]; [facility]; [facility] [place]; [facility]; [facility], [facility] Neville Mcke[place]; Alcoholics Anonymous -[facility]; [place] ; Marijuana Anonymous [facility]; Narcotics Anonymous [email or web address].na.org;
[2022-12-25] MEDS: ACETAMINOPHEN 325 MG TABLET PO PRN (10:26)
[2022-12-25] MEDS: HYDROCODONE/APAP 5/325MG TABLET PO PRN ×2 (14:40→21:53)
[2022-12-25 16:00] VITALS: BP 106/69
--- NOTE | 2022-12-25 18:32 | NUR ---
MS RN CLOSING NOTES RECEIVED PATIENT LYING IN BED, SLEEPING, AROUSABLE TO VERBAL STIMULI, PATIENT IS A/OX4, ABLE TO MAKE HER NEEDS KNOWN, DENIES ANY SOB/, SHE IS ON RA, BREATHING IS EVEN AND UNLABORED, DENIES PAIN AT THIS TIME, IV ACCESS ON RAC #20G AND ON SL. PATENT, INTACT AND FLUSHING WELL, FALL AND SAFETY MEASURES IN PLACE AND MAINTAINED AT ALL TIMES, BED ALARM ON, BED IN LOW AND LOCK POSITION, CALL LIGHT AND TABLE WITHIN EASY REACH, SIDE RAILS UP X2, SCHEDULED MEDICATIONS ADMINISTERED, ALL NEEDS ATTENDED AND ANTICIPATED, WILL ENDORSE TO PIN PUSHER NURSE.
--- NOTE | 2022-12-25 19:40 | NUR ---
MS RN Opening Note Received patient in bed; awake, alert and oriented x 4. On room air; tolerating well. Not in any form of respiratory or cardiac distress. No c/o pain or discomfort. With IV access on right antecubital 20g; patent, intact and saline locked. Able to make needs known. Fall and safety precautions implemented: call light and table within reach, side rails up x 2, bed in lowest locked position. Will continue to monitor throughout shift.
[2022-12-25 20:00] VITALS: BP 104/72
[2022-12-25] MEDS: VANCOMYCIN 0.75 GM in IV D5W 250 ML IV SCH (20:36)
--- NOTE | 2022-12-25 21:53 | NUR ---
RN Note Patient complained of right lower leg pain 7/10 pain scale. PRN [place] 5/325 mg 1 tab given po as ordered. Kept comfortable in bed. Will continue to monitor and reassess patient.
--- NOTE | 2022-12-26 02:12 | NUR ---
RN Note Patient verbalized feeling nauseated. PRN Zofran inj 2ml given IV as indicated. Kept warm and comfortable in bed. Will continue to monitor and reassess patient.
[2022-12-26 05:49] LABS: BASOPHILS % (AUTO) 0.1 % (0.0-2.0); EOSINOPHILS % (AUTO) 0.2 % (0.0-6.0); HEMATOCRIT 32 % (33-45); HEMOGLOBIN 10.8 g/dL (11.5-14.8); LYMPHOCYTES # (AUTO) 1.9 K/uL (0.8-4.8); LYMPHOCYTES % (AUTO) 42.1 % (20.0-44.0); MEAN CORPUSCULAR HGB CONC 34 g/dl (31.0-36.0); MEAN CORPUSCULAR VOLUME 87 fL (82-100); MONOCYTES # (AUTO) 0.4 K/uL (0.1-1.30); MONOCYTES % (AUTO) 8.2 % (2.0-12.0); NEUTROPHILS # (AUTO) 2.2 K/uL (1.8-8.9); NEUTROPHILS % (AUTO) 49.4 % (43.0-81.0); PLATELET COUNT (AUTO) 500 K/uL (150-450); RED BLOOD CELL COUNT(AUTO) 3.71 MIL/uL (4.0-5.2); WHITE BLOOD COUNT (AUTO) 4.5 K/uL (4.3-11.0)
[2022-12-26 06:07] LABS: CALCIUM, SERUM 8.9 mg/dL (8.5-10.1); CREATININE 0.9 mg/dL (0.6-1.3); PHOSPHORUS 3.4 mg/dL (2.5-4.9); POTASSIUM 4.6 mmol/L (3.5-5.1)
--- NOTE | 2022-12-26 06:40 | NUR ---
MS RN Closing Note Patient in bed; awake, a/o x 4. Stable on room air. In no acute distress. No c/o pain or discomfort. With IV access on right antecubital 20g; patent, intact and saline locked. All due meds given. All needs met. Fall and safety precautions maintained. Endorsed to incoming morning nurse for continuity of care.
[2022-12-26 07:00] VITALS: BP 120/64
--- NOTE | 2022-12-26 07:00 | NUR ---
MS RN OPENING NOTES: RECEIVED PT IN BED ASLEEP, EASILY AROUSED WITH STIMULI ALERT AND ORIENTED X 4 PLEASANT LADY. IV ACCESS ON RAC GAUGE 20 PATENT, INTACT AND SALINE LOCKED. NOTED WITH R LOWER LEG REDNESS/CELLULITIS. SAFETY MEASURES MAINTAINED: BED LOCKED AND IN LOWEST POSITION, SIDE RAILS UP X 2CALL LIGHT IN EASY REACH AND WILL MONITOR PT ACCORDINGLY.
[2022-12-26] MEDS: VANCOMYCIN 0.75 GM in IV D5W 250 ML IV SCH ×2 (07:48→20:34)
[2022-12-26] MEDS: NICOTINE PATCH (21MG) 21 MG PATCH.TD24 TD SCH (09:19)
[2022-12-26] MEDS: ENOXAPARIN SODIUM 40 MG/0.4 ML DISP.SYRIN SQ SCH (09:20)
[2022-12-26 16:00] VITALS: BP 103/55
[2022-12-26] MEDS: HYDROCODONE/APAP 5/325MG TABLET PO PRN (17:29)
--- NOTE | 2022-12-26 17:30 | NUR ---
PAIN MANAGEMENT: PAIN SCALE 7/10 ON RIGHT LOWER LEG. NORCO 5-325 PO/TAB GIVEN
--- NOTE | 2022-12-26 18:50 | NUR ---
MS RN CLOSING NOTES: PT IN BED AWAKE ALERT AND ORIENTED X 4. NO SOB OR CARDIAC DISTRESS NOTED. ON ROOM AIR AND TOLERATING WELL. ON PAIN MANAGEMENT ORDERED. IV ACCESS ON RAC GAUGE 20 PATENT, INTACT AND SALINE LOCKED. NOTED WITH R LOWER LEG REDNESS/CELLULITIS. PT IS AMBULATORY AND ABLE TO GO BRP. SAFETY MEASURES MAINTAINED: BED LOCKED AND IN LOWEST POSITION, SIDE RAILS UP X 2CALL LIGHT IN EASY REACH AND WILL ENDORSE PT TO GOVERNMENT DOCUMENTS LIBRARIAN NURSE FOR CONTINUITY OF CARE.
--- NOTE | 2022-12-26 19:15 | NUR ---
MS RN OPENING NOTES - RECEIVED PATIENT AWAKE IN BED, I ADMITTED HER 2 WEEKS AGO. A/O X4. BREATHING EVEN AND NON-LABORED ON ROOM AIR. NOT IN APPARENT DISTRESS. DENIES PAIN AT THIS TIME AFTER TAKING PRN NORCO 5-325MG. HAS RIGHT ANTECUBITAL IV ACCESS #20G AND SALINE LOCKED. NO S/S OF INFILTRATION NOTED. RIGHT LOWER LEG REDNESS AND SWELLING NOTED. SAFETY PRECAUTIONS IN PLACE: BED LOCKED AND IN LOW POSITION, SIDE RAILS UP X2, CALL LIGHT WITHIN REACH. WILL ENDORSE TO AM RN FOR CHARLES.
[2022-12-26 20:00] VITALS: BP 108/62
[2022-12-27 05:55] LABS: CALCIUM, SERUM 8.9 mg/dL (8.5-10.1); CREATININE 0.7 mg/dL (0.6-1.3)
--- NOTE | 2022-12-27 07:00 | NUR ---
MS RN OPENING NOTES: RECEIVED PT IN BED ASLEEP, EASILY AROUSED WITH STIMULI ALERT AND ORIENTED X 4 PLEASANT LADY. IV ACCESS ON RAC GAUGE 20 PATENT, INTACT AND SALINE LOCKED. NOTED WITH R LOWER LEG REDNESS/CELLULITIS NOTED THAT REDNESS AND EDEMA SUBSIDED. SAFETY MEASURES MAINTAINED: BED LOCKED AND IN LOWEST POSITION, SIDE RAILS UP X 2CALL LIGHT IN EASY REACH AND WILL MONITOR PT ACCORDINGLY.
--- NOTE | 2022-12-27 07:09 | NUR ---
MS RN CLOSING NOTES - PATIENT SLEEPING, EASY TO AROUSE. ABLE TO VERBALIZED NEEDS. NO RESPIRATORY OR CARDIAC DISTRESS THROUGHOUT THE NIGHT. AFEBRILE. RIGHT ANTECUBITAL IV ACCESS INTACT, PATENT AND FLUSHING. ALL DUE MEDS GIVEN AND NEEDS ATTENDED. OFFLOADED RIGHT LOWER LEG WITH PILLOW. SAFETY PRECAUTIONS MAINTAINED. WILL ENDORSE TO AM RN FOR CHARLES.
[2022-12-27 08:00] VITALS: BP 103/62
[2022-12-27] MEDS: VANCOMYCIN 0.75 GM in IV D5W 250 ML IV SCH ×2 (08:43→20:22)
[2022-12-27] MEDS: NICOTINE PATCH (21MG) 21 MG PATCH.TD24 TD SCH (08:43)
[2022-12-27] MEDS: ENOXAPARIN SODIUM 40 MG/0.4 ML DISP.SYRIN SQ SCH (08:44)
[2022-12-27 16:00] VITALS: BP 112/75
--- NOTE | 2022-12-27 18:45 | NUR ---
MS RN CLOSING NOTES: PT IN BED AWAKE ALERT AND ORIENTED X 4. NO SOB OR CARDIAC DISTRESS NOTED. ON ROOM AIR AND TOLERATING WELL. ON PAIN MANAGEMENT ORDERED. IV ACCESS ON RAC GAUGE 20 PATENT, INTACT AND SALINE LOCKED. NOTED WITH R LOWER LEG REDNESS/CELLULITIS. PT IS AMBULATORY AND ABLE TO GO BRP. ALL DUE AND AVAILABLE MEDS GIVEN ORDERED AND PARK WELL. SAFETY MEASURES MAINTAINED: BED LOCKED AND IN LOWEST POSITION, SIDE RAILS UP X 2 CALL LIGHT IN EASY REACH AND WILL ENDORSE PT TO VAC PRESS OPERATOR NURSE FOR CONTINUITY OF CARE.
--- NOTE | 2022-12-27 19:10 | NUR ---
MS RN OPENING NOTES - RECEIVED PATIENT EATING, ONE MALE AND ONE FEMALE VISITORS IN ROOM. A/O X4. BREATHING EVEN AND NON-LABORED ON ROOM AIR. VERBALIZED THAT SHE DOESN'T FEEL ANY MORE PAIN IN HER RIGHT LEG, REDNESS AND SWELLING STILL NOTED. HAS RIGHT ANTECUBITAL IV ACCESS #20G AND SALINE LOCKED. NO S/S OF INFILTRATION NOTED. SAFETY PRECAUTIONS IN PLACE: BED LOCKED AND IN LOW POSITION, SIDE RAILS UP X2, CALL LIGHT WITHIN REACH. WILL ENDORSE TO AM RN FOR CHARLES.
[2022-12-27 20:00] VITALS: BP 135/88
[2022-12-28 00:28] VITALS: BP 135/88
[2022-12-28] MEDS: ACETAMINOPHEN 325 MG TABLET PO PRN (04:17)
--- NOTE | 2022-12-28 04:20 | NUR ---
PATIENT ASKED FOR PRN TYLENOL 650MG FOR HEADACHE. GIVEN ORDERED.
[2022-12-28 06:12] LABS: CALCIUM, SERUM 9.2 mg/dL (8.5-10.1); CREATININE 0.8 mg/dL (0.6-1.3)
--- NOTE | 2022-12-28 06:38 | NUR ---
MS RN CLOSING NOTES - PATIENT RESTING IN ROOM, ABLE TO MAKE NEEDS KNOWN. TOLERATING ROOM AIR WELL. NO C/O RIGHT LEG PAIN THROUGHOUT THE NIGHT. HEADACHE RESOLVED. AFEBRILE. RIGHT ANTECUBITAL IV ACCESS INTACT, PATENT AND FLUSHING. ALL DUE MEDS GIVEN AND NEEDS ATTENDED. AMBULATORY WITH BRP. INDEPENDENT WITH ADLS. SAFETY PRECAUTIONS MAINTAINED. WILL ENDORSE TO AM RN FOR CHARLES.
[2022-12-28 08:00] VITALS: BP 106/61
[2022-12-28] MEDS: VANCOMYCIN 0.75 GM in IV D5W 250 ML IV SCH (08:35)
[2022-12-28] MEDS: NICOTINE PATCH (21MG) 21 MG PATCH.TD24 TD SCH (08:35)
[2022-12-28] MEDS: ENOXAPARIN SODIUM 40 MG/0.4 ML DISP.SYRIN SQ SCH (08:36)
--- NOTE | 2022-12-28 16:11 | NUR ---
RESIDENTIAL AIR SEALING TECHNICIAN NOTES: DISCHARGE PT BACK TO [facility]BER [facility]IV[facility], ACCOMPANIED BY FRIEND. ALERT, ORIENTED X4 AND ABLE TO MAKE NEEDS KNOWN. NO SOB OR CARDIAC DISTRESS NOTED, DENIES ANY PAIN/DISCOMFORT AT THIS TIME. PT IS AMBULATORY. DISCHARGE PACKET AND INSTRUCTIONS AND KEFLEX PRESCRIPTION GIVEN TO PT AND VERBALIZED UNDERSTANDING. SKIN IS INTACT. ALL BELONGING WITH THE PT ANS SIGNED. IV ACCESS REMOVED. IDENTIFICATION BAND IN PLACE. PT LEFT THE UNIT STABLE.
== END 2022-12-28 15:55 | DRG 383 ==
LOC: ER 01:41 → MED 04:35
DX: L03.115 Cellulitis of right lower limb (principal); E66.9 Obesity, unspecified; Z59.00 Homelessness unspecified; Z86.14 Personal history of Methicillin resistant Staphylococcus aureus infection; Z86.19 Personal history of other infectious and parasitic diseases; Z79.899 Other long term (current) drug therapy; Z68.33 Body mass index [BMI] 33.0-33.9, adult; F17.200 Nicotine dependence, unspecified, uncomplicated; F11.10 Opioid abuse, uncomplicated
CPT/HCPCS: 36415; 80048-TC; 80076-TC; 80202-TC; 83605-TC; 83735-TC; 84100-TC; 85025-TC; 85730-TC; 87040-TC; 87081-TC; A4223; G0378; J1650; J2405; J3370; J7050; J7060

== ENCOUNTER 2023-01-08 21:29 | Inpatient (IN) | payer OTHER ==
[~2023-01-08] VITALS: Ht 162.6 cm; Wt 91.2 kg
[~2023-01-08 21:29] MED LIST changes: -AMOX-430 PO; +CLIN300C12 PO; -HYDR-3980 PO; -HYDR-4279 PO; +LACT1CAP81 PO; -SULF1TAB48 PO; -ZOLP10TA2 PO
[2023-01-08] MEDS ORDERED: VANCOMYCIN 1 GM in IV D5W 250 ML IV ONE (23:00)
--- NOTE | 2023-01-08 23:00 | NUR ---
BIBSELF FROM HOME C/O LLE REDNESS, SWELLING, PAIN X2DAYS. ON ATB CEPHALEXIN. PATIENT IS AOX4. ABLE TO MAKE NEEDS KNOWN. PLACED COMFORTABLY IN BED. VITALS CHECKED.
--- NOTE | 2023-01-08 23:15 | NUR ---
IV BREANA INSERTED ON LEFT AC G20. BLOOD DRAWN AND SENT TO LAB
[2023-01-08] MEDS ORDERED: VANCOMYCIN 1 GM /D5W 250 ML PB IV ONE (23:16)
[2023-01-08 23:28] LABS: BASOPHILS % (AUTO) 0.1 % (0.0-2.0); EOSINOPHILS % (AUTO) 0.2 % (0.0-6.0); HEMATOCRIT 32 % (33-45); HEMOGLOBIN 10.6 g/dL (11.5-14.8); LYMPHOCYTES # (AUTO) 2.3 K/uL (0.8-4.8); LYMPHOCYTES % (AUTO) 34.8 % (20.0-44.0); MEAN CORPUSCULAR HGB CONC 33 g/dl (31.0-36.0); MEAN CORPUSCULAR VOLUME 88 fL (82-100); MONOCYTES # (AUTO) 0.6 K/uL (0.1-1.30); MONOCYTES % (AUTO) 9.3 % (2.0-12.0); NEUTROPHILS # (AUTO) 3.7 K/uL (1.8-8.9); NEUTROPHILS % (AUTO) 55.6 % (43.0-81.0); PLATELET COUNT (AUTO) 373 K/uL (150-450); RED BLOOD CELL COUNT(AUTO) 3.66 MIL/uL (4.0-5.2); WHITE BLOOD COUNT (AUTO) 6.7 K/uL (4.3-11.0)
[2023-01-08 23:40] LABS: CREATININE 0.8 mg/dL (0.6-1.3); POTASSIUM 3.9 mmol/L (3.5-5.1)
[2023-01-08 23:53] LABS: ALBUMIN 3.3 g/dL (3.4-5.0); BILIRUBIN,DIRECT 0.1 mg/dL (0.0-0.2); BILIRUBIN,TOTAL 0.3 mg/dL (0.2-1.0); TOTAL PROTEIN, SERUM 9.1 g/dL (6.4-8.2)
--- NOTE | 2023-01-09 00:22 | NUR ---
RECEIVED CALL FROM ROWENA MANUEL PT IS FOR OBSERVATION ACCORDING TO ROWENA.
--- NOTE | 2023-01-09 01:04 | NUR ---
REPORT GIVEN TO SARAH GARZA
--- NOTE | 2023-01-09 02:08 | NUR ---
TRANSFERRED TO ROOM
[2023-01-09 02:30] VITALS: BP 116/72; TEMP 98
--- NOTE | 2023-01-09 03:15 | NUR ---
hand compositor Note Admitted this 52 yo female patient from ED with ER staff at 0200am. Patient is ambulatory. Patient is awake, alert and oriented x 4. On room air; tolerating well. Breathing even and nonlabored. With IV access on left antecubital 20g; patent, intact and saline locked. VS taken as follows: Temp 98.0, NH 99, RR 18, BP 116/72 mm hg, O2 saturation 100%. Denies any pain or discomfort. Body and skin assessment done. Skin is warm to touch and intact. With bilateral legs redness and swelling. Pictures taken and placed to chart. Oriented to staff, room and unit. Inventory of personal belongings done and accounted in the form. Able to make needs known. Fall and safety precautions implemented: call light and table within reach, side rails up x 2, bed in lowest locked position. Will continue to monitor throughout shift.
[2023-01-09] MEDS ORDERED: MAGNESIUM HYDROXIDE 30 ML UDC PO PRN (07:00)
[2023-01-09] MEDS ORDERED: Z GUARD REMEDY 4 OZ OINT TP PRN (07:00)
[2023-01-09] MEDS ORDERED: HYDROCODONE/APAP 10/325MG TABLET PO PRN (07:00)
[2023-01-09] MEDS ORDERED: MAG HYDROX/AL HYDROX/SIMETH 30 ML UDC PO PRN (07:00)
[2023-01-09] MEDS ORDERED: ACETAMINOPHEN 325 MG TABLET PO PRN (07:00)
[2023-01-09] MEDS ORDERED: ONDANSETRON HCL/PF 4 MG/2 ML VIAL IVP PRN (07:00)
--- NOTE | 2023-01-09 07:20 | NUR ---
MS RN OPENING NOTE RECEIVED PATIENT IN BED, ASLEEP BUT EASY TO AROUSE; ALERT/ORIENTED X4. ABLE TO MAKE NEEDS KNOWN. NO SIGNS OF ACUTE DISTRESS NOTED. ON ROOM AIR, TOLERATING WELL, NO SOB, BREATHING EVEN AND UNLABORED. NOTED WITH IV ACCESS ON LEFT AC #20G-SALINE LOCKED, INTACT, PATENT AND FLUSHING WELL. PATIENT DENIES ANY PAIN AT THIS TIME. PATIENT NOTED WITH BLE REDNESS AND SWELLING. SAFETY MEASURES IN PLACED. SIDE RAILS UP X2; BED IN LOW AND LOCKED POSITION; CALL LIGHT AND TABLE WITHIN EASY REACH. WILL CONTINUE WITH PLAN OF CARE.
--- NOTE | 2023-01-09 07:23 | NUR ---
RN Closing Note Patient in bed; awake, a/o x 4. Stable on room air. In no acute distress. Denies pain or discomfort. With IV access on left ac 20g; patent, intact and saline locked. All needs attended. Safety measures maintained. Endorsed to incoming nurse for continuity of care.
[2023-01-09] MEDS: IV NS 0.9% 1,000 ML IV PRN (07:55)
[2023-01-09] MEDS: PANTOPRAZOLE 40 MG TABLET.DR PO SCH (07:56)
[2023-01-09] MEDS: ENOXAPARIN SODIUM 40 MG/0.4 ML DISP.SYRIN SQ SCH (07:57)
[2023-01-09 08:00] VITALS: BP 104/65; TEMP 97.9
[2023-01-09] MEDS: VANCOMYCIN 1 GM in IV D5W 250 ML IV SCH ×2 (09:09→21:19)
--- NOTE | 2023-01-09 09:41 | NUR ---
WOUND CARE CONSULT: PT PRESENTS WITH DRY WOUND TO LEFT FOOT AND REDNESS TO BILATERAL LOWER LEGS, ESPECIALLY RT LOWER LEG WITH REDNESS, PRESENT ON ADMISSION. DR TERRAZAS CALLED FOR DPM CONSULT. IN AGREEMENT WITH PLAN OF CARE.
[2023-01-09 16:00] VITALS: BP 103/62; TEMP 98
--- NOTE | 2023-01-09 19:10 | NUR ---
MS RN CLOSING NOTES PATIENT IN BED, ASLEEP BUT EASY TO AROUSE; ALERT/ORIENTED X4. ABLE TO MAKE NEEDS KNOWN. NO SIGNS OF ACUTE DISTRESS NOTED. ON ROOM AIR, TOLERATED WELL, NO SOB, BREATHING EVEN AND UNLABORED. NOTED WITH IV ACCESS ON LEFT AC #20G RUNNING WITH NS AT 75ML/HR. PATIENT DENIES ANY PAIN AT THIS TIME. PATIENT NOTED WITH BLE REDNESS AND SWELLING-ELEVATED WITH 2 PILLOWS AT ALL TIMES. ALL DUE MEDS GIVEN. ALL NURSING NEEDS ATTENDED. SAFETY PRECAUTIONS IMPLEMENTED. BED IN LOWEST AND LOCKED POSITION, HOB ELEVATED, SIDE RAILS UP X2, AND CALL LIGHT AND TABLE WITHIN REACH. WILL ENDORSE TO BET TAKER NURSE FOR CONTINUITY OF CARE.
--- NOTE | 2023-01-09 19:38 | NUR ---
RN OPENING NOTE PATIENT AWAKE IN BED. A/OX4. NO S/S OF DISTRESS, BREATHING WITHOUT DIFFICULTY ON ROOM AIR. LAC #20 INTACT AND PATENT W/ NS 75ML/HR. SAFETY MEASURES IN PLACE: BED LOCKED AND AT LOWEST POSITION, CALL DOWLING WITHIN REACH. WILL CONTINUE TO MONITOR PATIENT.
[2023-01-09 20:00] VITALS: BP 102/61; TEMP 98
[2023-01-10 06:12] LABS: BASOPHILS % (AUTO) 0.1 % (0.0-2.0); EOSINOPHILS % (AUTO) 0.2 % (0.0-6.0); HEMATOCRIT 31 % (33-45); LYMPHOCYTES # (AUTO) 1.7 K/uL (0.8-4.8); LYMPHOCYTES % (AUTO) 38.6 % (20.0-44.0); MEAN CORPUSCULAR HGB CONC 33 g/dl (31.0-36.0); MEAN CORPUSCULAR VOLUME 88 fL (82-100); MONOCYTES # (AUTO) 0.4 K/uL (0.1-1.30); MONOCYTES % (AUTO) 9.6 % (2.0-12.0); NEUTROPHILS # (AUTO) 2.3 K/uL (1.8-8.9); NEUTROPHILS % (AUTO) 51.5 % (43.0-81.0); PLATELET COUNT (AUTO) 362 K/uL (150-450); RED BLOOD CELL COUNT(AUTO) 3.49 MIL/uL (4.0-5.2); WHITE BLOOD COUNT (AUTO) 4.5 K/uL (4.3-11.0)
[2023-01-10 06:29] LABS: CALCIUM, SERUM 8.7 mg/dL (8.5-10.1); CREATININE 0.8 mg/dL (0.6-1.3); MAGNESIUM 2.2 mg/dL (1.8-2.4); PHOSPHORUS 3.9 mg/dL (2.5-4.9)
--- NOTE | 2023-01-10 07:08 | NUR ---
RN CLOSING NOTE PATIENT AWAKE IN BED. A/OX4. NO S/S OF DISTRESS, BREATHING WITHOUT DIFFICULTY ON ROOM AIR. LAC #20 INTACT AND PATENT W/ NS 75ML/HR. SAFETY MEASURES IN PLACE: BED LOCKED AND AT LOWEST POSITION. WILL ENDORSE TO NEXT SHIFT FOR CHARLES.
--- NOTE | 2023-01-10 07:30 | NUR ---
RN MS NOTES PT IN BED, AWAKE, ALERT AND ORIENTED, NO COMPLAINT OF PAIN, NOT IN DISTRESS, CALL LIGHT WITHIN REACH, KEPT ELECTRICAL CONTINUITY INSPECTOR BED.
[2023-01-10 08:00] VITALS: BP 96/57; TEMP 97.9
[2023-01-10] MEDS: PANTOPRAZOLE 40 MG TABLET.DR PO SCH (08:39)
[2023-01-10] MEDS: ENOXAPARIN SODIUM 40 MG/0.4 ML DISP.SYRIN SQ SCH (08:40)
[2023-01-10] MEDS: NICOTINE PATCH (14MG) 14 MG PATCH.TD24 TD SCH (08:40)
[2023-01-10] MEDS: VANCOMYCIN 1 GM in IV D5W 250 ML IV SCH ×2 (08:48→20:51)
[2023-01-10 16:00] VITALS: TEMP 97.6
--- NOTE | 2023-01-10 18:33 | NUR ---
RN MS CLOSING NOTES PT IN RESTING IN BED, HOB ELEVATED, A/O X 4, ABLE TO MAKE NEEDS KNOWN. PT IS STABLE ON ROOM AIR, NO SOB OR S/S OF RESPIRATORY DISTRESS. IV ACCESS LAC 20G INTACT AND PATENT, KEPT CLEAN AND DRY. SAFETY PRECAUTIONS MAINTAINED: BED IN LOWEST POSITION AND LOCKED, SIDE RAILS UP X 3, AND CALL LIGHT WITHIN REACH. NO FURTHER COMPLAINTS AND ALL NEED MET AT THIS TIME. ENDORSED TO NEXT SHIFT NURSE FOR CONTINUITY OF CARE.
--- NOTE | 2023-01-10 19:40 | NUR ---
RN OPENING NOTE PATIENT AWAKE IN BED. A/OX4. NO S/S OF DISTRESS, BREATHING WITHOUT DIFFICULTY ON ROOM AIR. LAC #20 INTACT AND PATENT W/ NS 75ML/HR. SAFETY MEASURES IN PLACE: BED LOCKED AND AT THE LOWEST POSITION, RAILS UP X2, CALL DOWLING WITHIN REACH. WILL CONTINUE TO MONITOR PATIENT.
[2023-01-10 20:00] VITALS: BP 114/74; TEMP 98.3
--- NOTE | 2023-01-11 06:42 | NUR ---
RN CLOSING NOTE PATIENT ASLEEP IN BED. A/OX4. NO S/S OF DISTRESS, BREATHING WITHOUT DIFFICULTY ON ROOM AIR. LAC #20 INTACT AND PATENT W/ NS 75ML/HR. SAFETY MEASURES IN PLACE: BED LOCKED AND AT LOWEST POSITION, RAILS UP X2, CALL DOWLING WITHIN REACH. WILL ENDORSE TO NEXT SHIFT.
[2023-01-11 07:00] VITALS: BP 112/66; TEMP 98.1
[2023-01-11 07:07] LABS: BASOPHILS % (AUTO) 0.1 % (0.0-2.0); HEMATOCRIT 31 % (33-45); HEMOGLOBIN 10.3 g/dL (11.5-14.8); LYMPHOCYTES # (AUTO) 2.1 K/uL (0.8-4.8); LYMPHOCYTES % (AUTO) 44.4 % (20.0-44.0); MEAN CORPUSCULAR HGB CONC 33 g/dl (31.0-36.0); MEAN CORPUSCULAR VOLUME 88 fL (82-100); MONOCYTES # (AUTO) 0.3 K/uL (0.1-1.30); MONOCYTES % (AUTO) 7.1 % (2.0-12.0); NEUTROPHILS # (AUTO) 2.3 K/uL (1.8-8.9); NEUTROPHILS % (AUTO) 48.4 % (43.0-81.0); PLATELET COUNT (AUTO) 362 K/uL (150-450); RED BLOOD CELL COUNT(AUTO) 3.51 MIL/uL (4.0-5.2); WHITE BLOOD COUNT (AUTO) 4.7 K/uL (4.3-11.0)
[2023-01-11 07:27] LABS: CALCIUM, SERUM 8.9 mg/dL (8.5-10.1); CREATININE 0.7 mg/dL (0.6-1.3); MAGNESIUM 1.9 mg/dL (1.8-2.4); POTASSIUM 3.6 mmol/L (3.5-5.1)
--- NOTE | 2023-01-11 07:31 | NUR ---
MS RN OPENING NOTE Received patient in bed, awake. A/O x 4, able to make needs known. No c/o pain/discomfort at this time. On room air, tolerating well. IV access in the LAC #20g, sl. Safety measures maintained: bed in lowest locked position, side rails up x 2, call light and tray table within easy reach. Will continue to monitor.
[2023-01-11] MEDS: PANTOPRAZOLE 40 MG TABLET.DR PO SCH (07:47)
[2023-01-11] MEDS: NICOTINE PATCH (14MG) 14 MG PATCH.TD24 TD SCH ×2 (08:27→08:31)
[2023-01-11] MEDS: VANCOMYCIN 1 GM in IV D5W 250 ML IV SCH ×3 (08:27→21:30)
[2023-01-11] MEDS: ENOXAPARIN SODIUM 40 MG/0.4 ML DISP.SYRIN SQ SCH (08:28)
[2023-01-11 16:00] VITALS: BP 98/60; TEMP 97.9
--- NOTE | 2023-01-11 18:52 | NUR ---
MS RN CLOSING NOTE Patient resting in bed. A/O x 4, no c/o pain/discomfort within the shift. On room air, tolerating well. IV access in the right wrist #22g, sl. Needs attended. Safety measures maintained: bed in lowest locked position, side rails up x 2, call light and tray table within easy reach. Will endorse inés to spiritual counselor.
--- NOTE | 2023-01-11 19:40 | NUR ---
MS RN OPENING NOTES RECEIVED PATIENT IN BED WATCHING TV. A/O X 4. ON ROOM AIR, BREATHING EVEN AND UNLABORED, NO S/S OF DISTRESS OR SOB NOTED. NO PAIN VERBALIZED AT THIS TIME. IV ACCESS RIGHT WRIST #22G ON SALINE LOCK, FLUSHING WELL. SAFETY MEASURES IN PLACE WITH BED IN LOWEST LOCK POSITION. SIDE RAILS UP. CALL LIGHT AND TRAY WITHIN EASY REACH. WILL CONTINUE TO MONITOR THE PATIENT FOR CONTINUITY OF CARE.
[2023-01-11 20:00] VITALS: BP 104/64; TEMP 98.2
[2023-01-12] MEDS: IV NS 0.9% 1,000 ML IV PRN (06:13)
--- NOTE | 2023-01-12 06:59 | NUR ---
MS RN CLOSING NOTES PATIENT IN BED WATCHING TV. A/O X 4. ON ROOM AIR, BREATHING EVEN AND UNLABORED, NO S/S OF DISTRESS OR SOB NOTED. NO PAIN VERBALIZED AT THIS TIME. IV ACCESS RIGHT WRIST #22G ON SALINE LOCK, FLUSHING WELL. ALL NEEDS ATTENDED. SAFETY MEASURES MAINTAINED DURING SHIFT. WILL ENDORSE TO THE NEXT SHIFT FOR CONTINUITY OF CARE.
[2023-01-12 07:00] VITALS: BP 103/61; TEMP 98.6
[2023-01-12 07:07] LABS: BASOPHILS % (AUTO) 0.1 % (0.0-2.0); HEMATOCRIT 32 % (33-45); HEMOGLOBIN 10.4 g/dL (11.5-14.8); LYMPHOCYTES # (AUTO) 1.8 K/uL (0.8-4.8); LYMPHOCYTES % (AUTO) 37.4 % (20.0-44.0); MEAN CORPUSCULAR HGB CONC 33 g/dl (31.0-36.0); MEAN CORPUSCULAR VOLUME 88 fL (82-100); MONOCYTES # (AUTO) 0.4 K/uL (0.1-1.30); MONOCYTES % (AUTO) 8.1 % (2.0-12.0); NEUTROPHILS # (AUTO) 2.7 K/uL (1.8-8.9); NEUTROPHILS % (AUTO) 54.4 % (43.0-81.0); PLATELET COUNT (AUTO) 364 K/uL (150-450); RED BLOOD CELL COUNT(AUTO) 3.61 MIL/uL (4.0-5.2); WHITE BLOOD COUNT (AUTO) 4.9 K/uL (4.3-11.0)
[2023-01-12 07:26] LABS: CALCIUM, SERUM 8.6 mg/dL (8.5-10.1); CREATININE 0.7 mg/dL (0.6-1.3); MAGNESIUM 1.7 mg/dL (1.8-2.4); PHOSPHORUS 3.6 mg/dL (2.5-4.9); POTASSIUM 3.8 mmol/L (3.5-5.1)
--- NOTE | 2023-01-12 07:42 | NUR ---
OPENING NOTE PATIENT RECEIVED ASLEEP WITH VISIBLE CHEST EXTENSION, RESPONSIVE TO VERBAL STIMULI. A/Ox4 ON ROOM AIR WITH NO S/S OF SOB. PAIN LEVEL 0, PER PT RESPONSE. CONTINENT: BRP. BLE REDNESS AND SWELLING. IV ACCESS ON THE R WRIST G22, INTACT AND PATENT. PROVIDED INTRODUCTION AND UPDATED THE BOARD. FALL AND SAFETY PRECAUTION IN PLACE: BED AT THE LOWEST POSITION,LOCKED, SRx2, CALL LIGHT WITHIN REACH.
[2023-01-12] MEDS: PANTOPRAZOLE 40 MG TABLET.DR PO SCH (08:26)
[2023-01-12] MEDS: NICOTINE PATCH (14MG) 14 MG PATCH.TD24 TD SCH (08:26)
[2023-01-12] MEDS: ENOXAPARIN SODIUM 40 MG/0.4 ML DISP.SYRIN SQ SCH (08:31)
[2023-01-12] MEDS: VANCOMYCIN 1 GM in IV D5W 250 ML IV SCH ×2 (09:46→22:02)
[2023-01-12] MEDS ORDERED: MAGNESIUM OXIDE 400 MG TABLET PO ONE (10:00)
[2023-01-12 16:00] VITALS: BP 113/69; TEMP 97.8
[2023-01-12] MEDS ORDERED: IOHEXOL-300 100 ML VIAL IV ONE (16:29)
[2023-01-12] MEDS ORDERED: IV NS 0.9% 250 ML IV ONE (16:30)
--- NOTE | 2023-01-12 18:44 | NUR ---
CLOSING NOTE PATIENT AWAKE IN BED. A/Ox4 ON ROOM AIR WITH NO S/S OF SOB. PAIN LEVEL 0, PER PT RESPONSE. IV ACCESS ON THE L WRIST G20, INTACT AND PATENT, FLUSHING WELL. DURING SHIFT PATIENT WAS COOPERATIVE TO CARE AND MED COMPLIANT. FALL AND SAFETY PRECAUTION IN PLACE: BED AT THE LOWEST POSITION,LOCKED, SRx2, CALL LIGHT WITHIN REACH.
--- NOTE | 2023-01-12 19:40 | NUR ---
MS RN OPENING NOTES RECEIVED PATIENT IN BED WATCHING TV. A/O X 4. ON ROOM AIR, BREATHING EVEN AND UNLABORED, NO S/S OF DISTRESS OR SOB NOTED. NO PAIN VERBALIZED AT THIS TIME. IV ACCESS LEFT WRIST #22G ON SALINE LOCK, FLUSHING WELL. SAFETY MEASURES IN PLACE WITH BED IN LOWEST LOCK POSITION. SIDE RAILS UP. CALL LIGHT AND TRAY WITHIN EASY REACH. WILL CONTINUE TO MONITOR THE PATIENT FOR CONTINUITY OF CARE.
[2023-01-13 05:57] LABS: BASOPHILS % (AUTO) 0.1 % (0.0-2.0); EOSINOPHILS % (AUTO) 0.1 % (0.0-6.0); HEMATOCRIT 32 % (33-45); HEMOGLOBIN 10.8 g/dL (11.5-14.8); LYMPHOCYTES # (AUTO) 1.8 K/uL (0.8-4.8); LYMPHOCYTES % (AUTO) 31.9 % (20.0-44.0); MEAN CORPUSCULAR HGB CONC 33 g/dl (31.0-36.0); MEAN CORPUSCULAR VOLUME 87 fL (82-100); MONOCYTES # (AUTO) 0.4 K/uL (0.1-1.30); MONOCYTES % (AUTO) 6.9 % (2.0-12.0); NEUTROPHILS # (AUTO) 3.4 K/uL (1.8-8.9); PLATELET COUNT (AUTO) 393 K/uL (150-450); RED BLOOD CELL COUNT(AUTO) 3.71 MIL/uL (4.0-5.2); WHITE BLOOD COUNT (AUTO) 5.5 K/uL (4.3-11.0)
[2023-01-13 06:15] LABS: CALCIUM, SERUM 8.9 mg/dL (8.5-10.1); CREATININE 0.7 mg/dL (0.6-1.3); PHOSPHORUS 4.4 mg/dL (2.5-4.9)
--- NOTE | 2023-01-13 06:43 | NUR ---
MS RN CLOSING NOTES PATIENT IN BED WATCHING TV. A/O X 4. ON ROOM AIR, BREATHING EVEN AND UNLABORED, NO S/S OF DISTRESS OR SOB NOTED. NO PAIN VERBALIZED AT THIS TIME. IV ACCESS LEFT WRIST #20G ON SALINE LOCK, FLUSHING WELL. ALL NEEDS ATTENDED. SAFETY MEASURES MAINTAINED DURING SHIFT. WILL ENDORSE TO THE NEXT SHIFT FOR CONTINUITY OF CARE.
--- NOTE | 2023-01-13 07:42 | NUR ---
OPENING NOTE PATIENT RECEIVED AWAKE A/Ox4, ON ROOM AIR WITH NO S/S OF SOB. PAIN LEVEL 0, PER PT RESPONSE. CONTINENT: BRP. R SIDE LEG REDNESS AND SWELLING. IV ACCESS ON THE L WRIST G20, INTACT AND PATENT. PROVIDED INTRODUCTION AND UPDATED THE PT BOARD. FALL AND SAFETY PRECAUTION IN PLACE: BED AT THE LOWEST POSITION,LOCKED, SRx2, CALL LIGHT WITHIN REACH.
[2023-01-13 08:00] VITALS: BP 106/64; TEMP 98.3
[2023-01-13] MEDS: PANTOPRAZOLE 40 MG TABLET.DR PO SCH (08:48)
[2023-01-13] MEDS: NICOTINE PATCH (14MG) 14 MG PATCH.TD24 TD SCH (08:48)
[2023-01-13] MEDS: ENOXAPARIN SODIUM 40 MG/0.4 ML DISP.SYRIN SQ SCH (08:49)
[2023-01-13] MEDS: VANCOMYCIN 1 GM in IV D5W 250 ML IV SCH ×2 (09:40→20:38)
[2023-01-13 16:00] VITALS: BP 107/66; TEMP 98.4
--- NOTE | 2023-01-13 19:05 | NUR ---
MS RN OPENING NOTES RECEIVED PATIENT AWAKE IN BED A/Ox4, ON ROOM AIR, TOLERATING WELL. WITH EVEN AND NONLABORED BREATHING. NO COMPLAINTS OF PAIN OR DISCOMFORT AT THIS TIME. IV ACCESS ON THE LEFT WRIST G#20, INTACT, PATENT, FLUSHING WELL, SALINE LOCKED. FALL AND SAFETY PRECAUTION IN PLACE: BED IN LOWEST POSITION,LOCKED, SRx2, CALL LIGHT WITHIN REACH. WILL CONTINUE TO MONITOR THROUGHOUT SHIFT.
--- NOTE | 2023-01-13 19:42 | NUR ---
CLOSING NOTE PATIENT AWAKE IN BED A/Ox4, ON ROOM AIR WITH NO S/S OF SOB. PAIN LEVEL 0, PER PT RESPONSE. THROUGHOUT SHIFT PT COMPLIANT WITH CARE, MEDICATION REGIME FOLLOWED ORDER/ PER BP STATUS. IV ACCESS ON THE L WRIST G 20 REMAINS INTACT AND PATENT, FLUSHING WELL. FALL AND SAFETY PRECAUTION IN PLACE: BED AT THE LOWEST POSITION,LOCKED, SRx2, CALL LIGHT WITHIN REACH.
[2023-01-13 20:00] VITALS: BP 124/74; TEMP 98.3
[2023-01-14 06:12] LABS: CALCIUM, SERUM 9.1 mg/dL (8.5-10.1); CREATININE 0.8 mg/dL (0.6-1.3); POTASSIUM 3.8 mmol/L (3.5-5.1)
--- NOTE | 2023-01-14 07:03 | NUR ---
RN CLOSING NOTES PATIENT AWAKE IN BED A/Ox4, ON ROOM AIR, TOLERATING WELL. WITH EVEN AND NONLABORED BREATHING. NO COMPLAINTS OF PAIN OR DISCOMFORT AT THIS TIME. IV ACCESS ON THE LEFT WRIST G#20, INTACT, PATENT, FLUSHING WELL, SALINE LOCKED. DUE MEDS GIVEN, NEEDS ATTENDED. FALL AND SAFETY PRECAUTION IN PLACE: BED IN LOWEST POSITION,LOCKED, SIDE RAILS x2, CALL LIGHT WITHIN REACH. WILL ENDORSE TO AM SHIFT FOR CHARLES.
[2023-01-14 08:00] VITALS: BP 95/49; TEMP 97.6
--- NOTE | 2023-01-14 08:01 | NUR ---
RN OPENING NOTES PATIENT AWAKE IN BED RESTING, APPEARS COMFORTABLE. A/Ox3, NO S/SX OF PAIN NOTED AT THIS TIME. ON ROOM AIR, BREATHING EVEN AND UNLABORED. WITH IV ACCESS ON LEFT FA, G20, SALINE LOCKED. FALL AND SAFETY MEASURES IN PLACE. BED ALARM ON, BED IN LOW AND LOCKED POSITION, CALL LIGHT AND TABLE WITHIN EASE REACH. SIDE RAILS UP X2. WILL CONTINUE TO MONITOR.
[2023-01-14] MEDS: PANTOPRAZOLE 40 MG TABLET.DR PO SCH (08:24)
[2023-01-14] MEDS: ENOXAPARIN SODIUM 40 MG/0.4 ML DISP.SYRIN SQ SCH (08:25)
[2023-01-14] MEDS: NICOTINE PATCH (14MG) 14 MG PATCH.TD24 TD SCH (08:26)
[2023-01-14] MEDS: VANCOMYCIN 1 GM in IV D5W 250 ML IV SCH (08:29)
--- NOTE | 2023-01-14 14:15 | NUR ---
FIRE INVESTIGATOR NOTE PATIENT DISCHARGED IN STABLE MEDICAL CONDITION. A/O X 4. V/S TAKEN, STABLE AND RECORDED. IV ACCESS REMOVED, CANNULA INTACT. NAME ARM BAND REMOVED. SKIN ASSESSMENT DONE AND PICTURES TAKEN. ALL BELONGINGS CHECKED AND BELONGINGS LIST SIGNED. HEALTH TEACHING AND DISCHARGE INSTRUCTIONS GIVEN AND VERBALIZED UNDERSTANDING. INSTRUCTED PATIENT TO MAKE APPOINTMENT WITH PRIMARY DOCTOR WITHIN 1-2 WEEKS. DISCUSSED PRESCRIPTIONS WITH PATIENT. INSTRUCTED PATIENT TO CALL 911 IN CASE OF EMERGENCY OR [facility]. PATIENT LEFT AMBULATORY WITH NO SIGNS OF DISTRESS AT 1415H, ACCOMPANIED BY RN TO [facility]. CHARGE NURSE AWARE OF DISCHARGE.
== END 2023-01-14 14:25 | disposition home or self-care (01) | DRG 383 ==
LOC: ER 21:30 → MED 01-09 00:55
PROVIDERS: ADMIT Student in an Organized Health Care Education/Training Program
DX: L03.116 Cellulitis of left lower limb (principal); I73.9 Peripheral vascular disease, unspecified; E66.9 Obesity, unspecified; Z59.00 Homelessness unspecified; Z86.14 Personal history of Methicillin resistant Staphylococcus aureus infection; L03.115 Cellulitis of right lower limb; F17.210 Nicotine dependence, cigarettes, uncomplicated; J45.909 Unspecified asthma, uncomplicated; Z68.34 Body mass index [BMI] 34.0-34.9, adult; F11.10 Opioid abuse, uncomplicated
CPT/HCPCS: 36415; 73700-TC; 73701-TC; 80048-TC; 80076-TC; 80202-TC; 83605-TC; 83735-TC; 84100-TC; 85025-TC; 85730-TC; 87040-TC; 87081-TC; A4223; G0378; J1650; J3370; J7030; J7040; J7050; J7060; Q9967

== ENCOUNTER 2023-05-13 03:16 | Inpatient (IN) | payer OTHER ==
[~2023-05-13] VITALS: Ht 162.6 cm; Wt 90.7 kg
[~2023-05-13 03:16] MED LIST changes: -CLIN300C12 PO
[2023-05-13] MEDS ORDERED: IOHEXOL-300 100 ML VIAL IV ONE (04:12)
[2023-05-13] MEDS ORDERED: IV NS 0.9% 250 ML IV ONE (04:12)
[2023-05-13] MEDS ORDERED: ONDANSETRON HCL/PF - ER 4 MG/2 ML VIAL IV ONE (04:30)
[2023-05-13] MEDS ORDERED: MORPHINE SULFATE INJ 2 MG/ML DISP.SYRIN IV ONE ×2 (04:30→08:00)
[2023-05-13] MEDS ORDERED: IV NS 0.9% 1,000 ML BAG IV ONE (04:30)
[2023-05-13 05:17] LABS: ALBUMIN 3.7 g/dL (3.4-5.0); BILIRUBIN,DIRECT 0.1 mg/dL (0.0-0.2); BILIRUBIN,TOTAL 0.4 mg/dL (0.2-1.0); CALCIUM, SERUM 9.2 mg/dL (8.5-10.1); POTASSIUM 4.4 mmol/L (3.5-5.1); TOTAL PROTEIN, SERUM 8.1 g/dL (6.4-8.2)
[2023-05-13] MEDS ORDERED: ONDANSETRON HCL/PF 4 MG/2 ML VIAL ONE (05:32)
[2023-05-13] MEDS ORDERED: MORPHINE SULFATE INJ 4 MG/ML DISP.SYRIN ONE (05:32)
[2023-05-13 05:44] LABS: BASOPHILS % (AUTO) 0.1 % (0.0-2.0); HEMATOCRIT 35 % (33-45); HEMOGLOBIN 11.9 g/dL (11.5-14.8); LYMPHOCYTES # (AUTO) 2.1 K/uL (0.8-4.8); LYMPHOCYTES % (AUTO) 25.7 % (20.0-44.0); MEAN CORPUSCULAR HEMOGLOBIN 29 PG (26.0-33.0); MEAN CORPUSCULAR HGB CONC 34 g/dl (31.0-36.0); MEAN CORPUSCULAR VOLUME 87 fL (82-100); MONOCYTES # (AUTO) 0.6 K/uL (0.1-1.30); MONOCYTES % (AUTO) 7.2 % (2.0-12.0); NEUTROPHILS # (AUTO) 5.5 K/uL (1.8-8.9); PLATELET COUNT (AUTO) 310 K/uL (150-450); RED BLOOD CELL COUNT(AUTO) 4.06 MIL/uL (4.0-5.2); RED CELL DISTRIBUTION WIDTH 14.9 % (11.5-15.0); WHITE BLOOD COUNT (AUTO) 8.2 K/uL (4.3-11.0)
[2023-05-13] MEDS ORDERED: MORPHINE SULFATE INJ 2 MG/ML DISP.SYRIN ONE (08:54)
[2023-05-13] MEDS ORDERED: MAGNESIUM HYDROXIDE 30 ML UDC PO PRN (10:30)
[2023-05-13] MEDS ORDERED: ZOLPIDEM TARTRATE 5 MG TABLET PO PRN (10:30)
[2023-05-13] MEDS ORDERED: ACETAMINOPHEN 325 MG TABLET PO PRN (10:30)
[2023-05-13] MEDS ORDERED: MAG HYDROX/AL HYDROX/SIMETH 30 ML UDC PO PRN (10:30)
[2023-05-13] MEDS ORDERED: ONDANSETRON HCL/PF 4 MG/2 ML VIAL IVP PRN (10:30)
[2023-05-13] MEDS ORDERED: IV NS 0.9% 1,000 ML IV PRN (10:30)
[2023-05-13] MEDS: PANTOPRAZOLE 40 MG TABLET.DR PO SCH (11:43)
[2023-05-13] MEDS: NICOTINE PATCH (14MG) 14 MG PATCH.TD24 TD SCH (11:43)
[2023-05-13] MEDS: HYDROCODONE/APAP 5/325MG TABLET PO PRN (11:57)
[2023-05-13 16:00] VITALS: BP 110/73; TEMP 98.1; O2SAT 93
[2023-05-13] MEDS: MORPHINE SULFATE INJ 2 MG/ML DISP.SYRIN IV PRN ×2 (17:38→21:18)
[2023-05-13 20:00] VITALS: BP 114/70; TEMP 98.4; O2SAT 96
[2023-05-14] MEDS: MORPHINE SULFATE INJ 2 MG/ML DISP.SYRIN IV PRN ×2 (02:29→18:12)
[2023-05-14 07:00] VITALS: BP 119/67; TEMP 97.9; O2SAT 97
[2023-05-14 07:05] LABS: EOSINOPHILS % (AUTO) 0.3 % (0.0-6.0); HEMATOCRIT 32 % (33-45); HEMOGLOBIN 10.8 g/dL (11.5-14.8); LYMPHOCYTES % (AUTO) 38.8 % (20.0-44.0); MEAN CORPUSCULAR HEMOGLOBIN 29 PG (26.0-33.0); MEAN CORPUSCULAR HGB CONC 34 g/dl (31.0-36.0); MEAN CORPUSCULAR VOLUME 87 fL (82-100); MONOCYTES # (AUTO) 0.5 K/uL (0.1-1.30); MONOCYTES % (AUTO) 9.1 % (2.0-12.0); NEUTROPHILS # (AUTO) 2.7 K/uL (1.8-8.9); NEUTROPHILS % (AUTO) 51.8 % (43.0-81.0); PLATELET COUNT (AUTO) 258 K/uL (150-450); RED BLOOD CELL COUNT(AUTO) 3.65 MIL/uL (4.0-5.2); RED CELL DISTRIBUTION WIDTH 15.1 % (11.5-15.0); WHITE BLOOD COUNT (AUTO) 5.2 K/uL (4.3-11.0)
[2023-05-14 07:39] LABS: THYROID STIMULATING HORMONE 0.484 uIU/mL (0.358-3.74)
[2023-05-14 07:53] LABS: CALCIUM, SERUM 8.3 mg/dL (8.5-10.1); CREATININE 0.7 mg/dL (0.6-1.3); MAGNESIUM 1.9 mg/dL (1.8-2.4); PHOSPHORUS 3.7 mg/dL (2.5-4.9); POTASSIUM 3.6 mmol/L (3.5-5.1)
[2023-05-14] MEDS: PANTOPRAZOLE 40 MG TABLET.DR PO SCH (08:02)
[2023-05-14] MEDS: NICOTINE PATCH (14MG) 14 MG PATCH.TD24 TD SCH (08:02)
[2023-05-14] MEDS: HYDROCODONE/APAP 5/325MG TABLET PO PRN ×2 (08:03→12:47)
[2023-05-14] MEDS: NEOMY SULF/BACITRAC ZN/POLY 15 GM TUBE TP SCH ×2 (09:00→18:12)
[2023-05-14 20:00] VITALS: BP 111/68; TEMP 97.7; O2SAT 96
[2023-05-15] MEDS: MORPHINE SULFATE INJ 2 MG/ML DISP.SYRIN IV PRN ×2 (00:04→05:38)
[2023-05-15 07:00] VITALS: BP 119/60; TEMP 98.4; O2SAT 94
[2023-05-15] MEDS: PANTOPRAZOLE 40 MG TABLET.DR PO SCH (09:05)
[2023-05-15] MEDS: NICOTINE PATCH (14MG) 14 MG PATCH.TD24 TD SCH (09:05)
[2023-05-15] MEDS: NEOMY SULF/BACITRAC ZN/POLY 15 GM TUBE TP SCH (09:08)
[2023-05-15] MEDS ORDERED: HYDR-3972 PO (09:41)
[2023-05-15] MEDS: HYDROCODONE/APAP 5/325MG TABLET PO PRN (10:30)
== END 2023-05-15 12:37 | disposition home or self-care (01) | DRG 347 ==
LOC: ER 03:18 → MED 09:00
PROVIDERS: ADMIT Nurse Practitioner Acute Care; ATTEND Nurse Practitioner Acute Care
DX: S32.019A Unspecified fracture of first lumbar vertebra, initial encounter for closed fracture (principal); F17.210 Nicotine dependence, cigarettes, uncomplicated; V89.2XXA Person injured in unspecified motor-vehicle accident, traffic, initial encounter; M21.611 Bunion of right foot; M21.612 Bunion of left foot; Y93.9 Activity, unspecified; Z71.6 Tobacco abuse counseling; S90.111A Contusion of right great toe without damage to nail, initial encounter; Y99.9 Unspecified external cause status; Y92.410 Unspecified street and highway as the place of occurrence of the external cause
CPT/HCPCS: 36415; 71260-TC; 73110; 73130-TC; 73564-TC; 73630-TC; 80048-TC; 80076-TC; 83735-TC; 84100-TC; 84443-TC; 85025-TC; 87081-TC; 97112-TC; 97116-TC; 97530-TC; G0378; J2270; J2405; J7030; J7050; Q9967

== ENCOUNTER 2023-09-28 18:17 | Emergency (ER) | payer OTHER ==
[~2023-09-28] VITALS: Ht 162.6 cm; Wt 86.6 kg
[~2023-09-28 18:17] MED LIST changes: +HYDR-3972 PO; -LACT1CAP81 PO
[2023-09-28] MEDS ORDERED: CLIN300C12 PO (19:12)
[2023-09-28] MEDS ORDERED: CLINDAMYCIN HCL 150 MG CAPSULE ONE (19:15)
[2023-09-28 20:06] VITALS: BP 127/68; TEMP 98.1; O2SAT 98
[2023-09-28] MEDS: CLINDAMYCIN HCL 150 MG CAPSULE PO ONE (20:06)
== END 2023-09-28 20:07 | disposition home or self-care (01) ==
LOC: ER 18:20
DX: L03.116 Cellulitis of left lower limb (principal)

== ENCOUNTER 2024-05-29 03:22 | Emergency (ER) | payer OTHER ==
[~2024-05-29] VITALS: Ht 162.6 cm; Wt 90.7 kg
[~2024-05-29 03:22] MED LIST changes: +CLIN300C12 PO
[2024-05-29 03:52] VITALS: BP 159/95; TEMP 98.1; O2SAT 98
[2024-05-29] MEDS ORDERED: CEPH500C2 PO (04:01)
== END 2024-05-29 04:03 | disposition home or self-care (01) ==
LOC: ER 03:29
DX: K13.0 Diseases of lips (principal); L03.115 Cellulitis of right lower limb; F17.210 Nicotine dependence, cigarettes, uncomplicated

== ENCOUNTER 2025-06-24 10:15 | Emergency (ER) | payer OTHER ==
[~2025-06-24] VITALS: Ht 162.6 cm; Wt 91.2 kg
[~2025-06-24 10:15] MED LIST changes: +CEPH500C2 PO
[2025-06-24] MEDS ORDERED: GUAIFENESIN/D-METHORPHAN HB 5 ML UDC ONE (12:05)
[2025-06-24] MEDS: GUAIFENESIN/D-METHORPHAN HB 5 ML UDC PO ONE (12:09)
[2025-06-24] MEDS ORDERED: ALBU18HF2 INH (12:46)
[2025-06-24] MEDS ORDERED: BENZ-13 PO (12:46)
[2025-06-24] MEDS ORDERED: AZIT250T13 PO (12:46)
[2025-06-24 12:51] VITALS: BP 135/84; TEMP 98.5; O2SAT 100
== END 2025-06-24 12:53 | disposition home or self-care (01) ==
LOC: ER 10:15
DX: B34.9 Viral infection, unspecified (principal); J40 Bronchitis, not specified as acute or chronic; F17.210 Nicotine dependence, cigarettes, uncomplicated; Z86.14 Personal history of Methicillin resistant Staphylococcus aureus infection; Z20.822 Contact with and (suspected) exposure to COVID-19
CPT/HCPCS: 71045-TC